=== PATIENT | male | born 1960 | race African-American/Black ===

== ENCOUNTER 2024-07-18 04:22 | Emergency (ER) | payer OTHER, SELFPAY ==
--- NOTE | ~2024-07-18 | XR_ITS ---
EXAMINATION: XR KNEE, RIGHT CLINICAL INFORMATION: R knee pain COMPARISON: None available. TECHNIQUE: AP and lateral radiographs of the knee. FINDINGS: Mild enthesopathic changes of the patella are noted. No joint effusion identified. Normal joint spacing and alignment. Mild osteophytosis of the medial tibial plateau. Mild prepatellar soft tissue prominence. XR/XR knee RT 2V IMPRESSION: *No acute fractures or subluxations. *Borderline prepatellar soft tissue prominence which may represent soft tissue inflammatory changes. *Minimal osteophytosis of the medial tibial plateau. Electronically signed by: Bipin Rodriguez MD 07/18/2024 06:07 AM HYACINTH
[2024-07-18 04:29] VITALS: BP 122/77; BP 160/92; PULSE 107; PULSE 116; RESP 20; TEMP 36.6; O2SAT 95; O2SAT 98; BMI 32.5
[2024-07-18] MEDS: Acetaminophen 325 MG TABLET 975 MG PO (04:39)
[2024-07-18 05:01] LABS: MANUAL DIFF FLAG NO
[2024-07-18 05:02] LABS: Basophils Absolute Auto 0.1 X10*3/uL (0.0-0.2); Basophils Percent Auto 0.7 % (0-2); Eosinophils Absolute Auto 0.2 X10*3/uL (0.0-0.4); Eosinophils Percent Auto 2.8 % (0-4); Hematocrit 38.3 % (42.0-52.0); Hemoglobin 12.7 g/dl (14.0-18.0); Imm Gran Abs Auto 0.04 X10*3/uL (0.00-0.03); Imm Gran Pct Auto 0.6 % (0.0-0.4); Lymphocytes Absolute Auto 1.8 X10*3/uL (1.2-4.9); Lymphocytes Percent Auto 25.5 % (20-40); Mean Corpuscular HGB Conc 33.2 g/dl (31.0-36.0); Mean Corpuscular Hemoglobin 27.8 pg (27.0-33.0); Mean Corpuscular Volume 83.8 fL (80.0-98.0); Mean Platelet Volume 11.2 fL (9.4-12.4); Monocytes Absolute Auto 0.8 X10*3/uL (0.1-1.2); Monocytes Percent Auto 10.5 % (2-11); Neutrophils Absolute Auto 4.3 x10*3/uL (2.0-8.3); Neutrophils Percent Auto 59.9 % (45-73); Platelet Count 272 X10*3/uL (160-400); Red Blood Count 4.57 X10*6/uL (4.60-5.80); White Blood Count 7.2 X10*3/uL (4.8-10.8)
[2024-07-18 05:15] LABS: Albumin Level 4.6 g/dL (3.5-5.0); Alkaline Phosphatase 121 U/L (39-117); Anion Gap 16 (12-20); Aspartate Amino Transferase 42 U/L (5-37); Bilirubin Total 0.2 mg/dL (0.0-1.0); Blood Urea Nitrogen 13 mg/dL (9-16); Calcium 10.5 mg/dL (8.4-10.2); Carbon Dioxide 22 mmol/L (22-29); Chloride 103 mmol/L (96-108); Creatinine Clr Calc Pharmacy 95.1; Estimated Glomerular Filt Rate > 60; Glucose Random 212 mg/dL (60-115); Potassium 4.2 mmol/L (3.3-5.1); Sodium 137 mmol/L (135-145); Total Protein 8.5 g/dL (6.5-8.0); Uric Acid 5.1 mg/dL (3.4-7.0)
[2024-07-18 05:25] LABS: Alanine Aminotransferase 43 U/L (0-40)
--- NOTE | 2024-07-18 05:58 | PC.NURSE ---
pt reporting 8/10 pain. states he believes it may be gout. unable to bear weight. Has to take the bus after leaving here would like crutches or cane when discharged
[2024-07-18] MEDS: oxyCODONE HCl Immed Release 5 MG TABLET 10 MG PO (06:10)
[2024-07-18] MEDS: predniSONE 20 MG TABLET 60 MG PO (06:10)
[2024-07-18 06:36] VITALS: BP 148/89; PULSE 94; RESP 17; TEMP 37.8; O2SAT 96
--- NOTE | 2024-07-18 07:31 | ED.EXTPRO ---
HPI - Extremity Problem General Chief complaint: Extremity Problem Stated complaint: RT KNEE PAIN Time Seen by Provider: 07/18/24 06:55 Source: patient Mode of arrival: ambulatory History of Present Illness ED Provider: Stacy HAYDEN Narrative: 63-year-old male with history of gout and comes in with 1 week of right knee pain that is worsening, there is warmth and he reports redness. He denies any fevers or chills. Related Data Home Medications ?Medication ?Instructions ?Recorded ?Confirmed Pepcid 10/22/23 Remeron 10/22/23 10/22/23 bupropion HCl 10/22/23 omeprazole 10/22/23 tadalafil (pulm. hypertension) 10/22/23 Allergies Allergy/AdvReac Type Severity Reaction Status Date / Time No Known Allergies Allergy Verified 07/18/24 04:35 Review of Systems Review of Systems: Pertinent positives and negatives as stated in [facility]PI [facility] Past Medical History Source: nursing notes reviewed Medical History HTN (hypertension) Spinal stenosis Depressed Anxiety PTSD (post-traumatic stress disorder) GERD (gastroesophageal reflux disease) Gout Hyperlipidemia Social History Social History Alcohol intake: current Alcohol intake frequency: a few times a week Smoked in Last 30 Days: No Use of substances other than those prescribed or required for medical reasons: No Advance Directives: No Advance Directives Information Provided: No Physical Exam Vital Signs: Vital Signs: Last Vital Signs Temp 100.0 F 07/18/24 06:36 Pulse 94 07/18/24 06:36 Resp 17 07/18/24 06:36 BP 148/89 H 07/18/24 06:36 Pulse Ox 96 07/18/24 06:36 O2 Del Method Room Air 07/18/24 06:36 BMI result Body Mass Index 32.5 VITAL SIGNS: Reviewed. GENERAL: Well developed, well nourished, in no acute distress. HEAD: Normocephalic/atraumatic EYES: PERRLA, EOMI LUNGS: Normal breath sounds. No adventitious sounds or accessory muscle use. SpO2<96> CARDIOVASCULAR: Regular rate and rhythm without noted murmurs ABDOMEN: Soft, non-tender, non-distended with bowel sounds. MUSCULOSKELETAL: No tenderness, deformities, or effusions noted on gross inspection. EXTREMITIES: No cyanosis, clubbing or edema. RIGHT KNEE: Warmth noted to the knee, no significant effusion, some erythema without induration noted and neurovascularly intact distal. SKIN: Inspection of the skin reveals no rashes NEUROLOGIC: Alert and oriented x 4. Strength and sensation to light touch were grossly intact x 4. Medications Administered Discontinued Medications Generic Name Dose Route Start Last Admin Trade Name Freq PRN Reason Stop Dose Admin Acetaminophen 975 mg 07/18/24 04:37 07/18/24 04:39 Acetaminophen 325 Mg Tablet PO 07/18/24 04:38 975 mg ONCE ONE Administration Oxycodone HCl 10 mg 07/18/24 06:03 07/18/24 06:10 Oxycodone Hcl Immed Release 5 Mg Tablet PO 07/18/24 06:04 10 mg ONCE ONE Administration Prednisone 60 mg 07/18/24 06:03 07/18/24 06:10 Prednisone 20 Mg Tablet PO 07/18/24 06:04 60 mg ONCE ONE Administration Medical Decision Making Medical Decision Making [facility] Narrative: 63-year-old male with history and clinical presentation, DD DX: Gout flare, osteoarthritis flare, no clinical suspicion for septic arthritis at this time. I reviewed and interpreted all investigations and there is no evidence of infectious leukocytosis, there is a normocytic anemia, no thrombocytopenia. There is no demonstrate CHAR/electrolyte but clinically stable liver values. X-ray on my interpretation does not demonstrate any significant effusion, there are no fractures or dislocations identified and otherwise my interpretation is in agreement with radiology's impression. My interpretation is that this is a gout flare and patient will be treated with initial 1.2 mg of colchicine and follow-up with 0.6 mg 1 hour later. He is also advised to follow-up with his primary care doctor and to return to this emergency room should he experience any worsening of his symptoms. Differential Diagnosis Differential Diagnoses: The differential diagnosis associated with the presentation includes As above Admission/Observation Consideration of admission/observation: Escalation of care including admission/observation considered Patient does not meet inpatient level of care Lab Data [facility] Lab Attestation statement: I reviewed the patient's lab results. As above 07/18/24 04:47 07/18/24 04:47 Labs: Lab Results 07/18/24 Range/Units 04:47 WBC 7.2 (4.8-10.8) X10*3/uL RBC 4.57 L (4.60-5.80) X10*6/uL Hgb 12.7 L (14.0-18.0) g/dl Hct 38.3 L (42.0-52.0) % MCV 83.8 (80.0-98.0) fL MCH 27.8 (27.0-33.0) pg MCHC 33.2 (31.0-36.0) g/dl RDW 15.0 (11.0-16.0) % Plt Count 272 (160-400) X10*3/uL MPV 11.2 (9.4-12.4) fL Immature Gran % (Auto) 0.6 H (0.0-0.4) % Neut % (Auto) 59.9 (45-73) % Lymph % (Auto) 25.5 (20-40) % Mayes % (Auto) 10.5 (2-11) % Eos % (Auto) 2.8 (0-4) % Baso % (Auto) 0.7 (0-2) % Lymph # (Auto) 1.8 (1.2-4.9) X10*3/uL Mayes # (Auto) 0.8 (0.1-1.2) X10*3/uL Eos # (Auto) 0.2 (0.0-0.4) X10*3/uL Baso # (Auto) 0.1 (0.0-0.2) X10*3/uL Abs Immat Gran (auto) 0.04 H (0.00-0.03) X10*3/uL Absolute Neuts (auto) 4.3 (2.0-8.3) x10*3/uL Absolute Nucleated RBC 0.000 (0.0-0.012) X10*3/uL Nucleated RBC % (auto) 0.0 (0.0-0.2) /100WBC Sodium 137 (135-145) mmol/L Potassium 4.2 (3.3-5.1) mmol/L Chloride 103 (96-108) mmol/L Carbon Dioxide 22 (22-29) mmol/L Anion Gap 16 (12-20) BUN 13 (9-16) mg/dL Creatinine 1.00 (0.5-1.4) mg/dL Estim Creat Clear Calc 95.1 Estimated GFR > 60 Random Glucose 212 H (60-115) mg/dL Uric Acid 5.1 (3.4-7.0) mg/dL Calcium 10.5 H (8.4-10.2) mg/dL Total Bilirubin 0.2 (0.0-1.0) mg/dL AST 42 H (5-37) U/L ALT 43 H (0-40) U/L Alkaline Phosphatase 121 H (39-117) U/L Total Protein 8.5 H (6.5-8.0) g/dL Albumin 4.6 (3.5-5.0) g/dL Independent Interpretation I performed an independent interpretation of an: Plain X-Ray Interpretation: As above Radiology Impression Discussion of test interpretation with radiology: I have reviewed the radiologist's reading. Radiologist Impression: As above External Record Review External record reviewed: Prior outpatient labs and Prior outpatient radiology Discharge Plan Discharge Clinical Impression: Gout flare Patient Disposition: Home, Self-Care Instructions: Low Purine Diet (ED), Gout (ED) Additional Instructions: Resume all home medications as prescribed. You have been treated for gout in the emergency room today, you should continue with Tylenol and ibuprofen and follow-up with your primary care doctor within the next 3-4 days. Do not hesitate to return to the emergency room for any worsening of your symptoms. Prescriptions: No Action Pepcid Remeron bupropion HCl omeprazole tadalafil (pulm. hypertension) Referrals: Jam Parrish MD [Primary Care Provider] - Print Language: Maltese
[2024-07-18] MEDS: Colchicine 0.6 MG TABLET 1.2 MG PO (08:07)
[2024-07-18] MEDS: Colchicine 0.6 MG TABLET PO (08:07)
[2024-07-18 08:10] VITALS: BP 148/89; PULSE 94; RESP 17; TEMP 37.8
[2024-07-18 08:11] VITALS: BP 148/89; PULSE 94; RESP 17; TEMP 37.8
[2024-07-18 08:43] VITALS: BP 148/89; PULSE 94; RESP 17; TEMP 37.8
== END 2024-07-18 08:44 | disposition home or self-care (01) ==
PROVIDERS: Emergency Provider Student in an Organized Health Care Education/Training Program; PCP Internal Medicine
DX: M10.9 Gout, unspecified (principal); M25.561 Pain in right knee; I10 Essential (primary) hypertension; E78.5 Hyperlipidemia, unspecified
CPT/HCPCS: 36415; 73560; 80053; 84550; 85025; 99283; 99284

== ENCOUNTER 2024-12-21 11:09 | Emergency (ER) | payer OTHER, SELFPAY ==
--- NOTE | 2024-12-21 11:18 | ED_ITS ---
HPI - General Adult General Chief complaint: General Medical Stated complaint: N/V/D,WEAK, X2D PER EMS Time Seen by Provider: 12/21/24 11:18 Source: patient, EMS, RN notes reviewed and old records reviewed Mode of arrival: EMS Limitations: no limitations History of Present Illness ED Provider: Shravan HAYDEN narrative: Patient is a 64-year-old male with history of anxiety, depression, PTSD, HTN, GERD, HLD presenting to the emergency department with complaint of generalized fatigue. States last night at bedtime he felt extremely anxious, felt he was unable to sit still, tremulous to his extremities. After that he reports ?very dark and ?diarrhea, nausea and vomiting. Denies fevers. Denies chest pain, dyspnea, palpitations. Denies abdominal pain. Reports increased urinary frequency at night but states he has been drinking an increased amount of water during the day at his PCPs recommendation. States he felt so weak today that he was using a cane for ambulation. MD complaint: n/v/d, weakness Onset (ago): hour(s) Related Data Home Medications ?Medication ?Instructions ?Recorded ?Confirmed Pepcid 10/22/23 Remeron 10/22/23 10/22/23 bupropion HCl 10/22/23 omeprazole 10/22/23 tadalafil (pulm. hypertension) 10/22/23 Allergies Allergy/AdvReac Type Severity Reaction Status Date / Time No Known Allergies Allergy Verified 12/21/24 11:20 Review of Systems 2 Review of Systems: As per HPI Yes all other systems are reviewed and are negative Constitutional: Constitutional: Reports as per HPI ON LICENSE OF [facility] Past Medical History Medical History HTN (hypertension) Spinal stenosis Depressed Anxiety PTSD (post-traumatic stress disorder) GERD (gastroesophageal reflux disease) Gout Hyperlipidemia Social History Social History Alcohol intake: current Alcohol intake frequency: a few times a week Smoked in Last 30 Days: No Use of substances other than those prescribed or required for medical reasons: No Advance Directives: No Advance Directives Information Provided: Yes Do you have a plan to hurt others: No Plan Physical Exam ED Vital Signs: Vital Signs - 24 hr 12/21/24 11:19 Temperature 98 F Pulse Rate 92 Respiratory Rate 18 Blood Pressure 130/73 Pulse Oximetry 95 Oxygen Delivery Method Room Air BMI result Body Mass Index 30.9 Vital signs have been reviewed and appear to be correct. Blood pressure normal. Heart rate normal. Respiratory rate normal. Temperature normal. Oxygen saturation normal. Const General: cooperative, healthy appearing and no acute distress Orientation/consciousness: oriented to person, oriented to place, oriented to time and patient oriented x3 Limitations: no limitations HENMT Head: Yes normocephalic and Yes atraumatic Ears: external ears normal General nose exam: Normal external nose present Face and sinus: Yes face symmetric Mouth: oropharynx normal and moist mucous membranes Throat: Yes uvula midline Eyes Pupils: Equal, round and reactive pupils present Neck Neck: Yes normal visual inspection and Yes supple Resp Effort & Inspection: normal respiratory effort and able to speak in complete sentences Auscultation: clear to auscultation bilaterally Cardio Rate: regular rate Rhythm: regular rhythm Heart sounds: S1 normal heart sound present and S2 normal heart sound present GI Palpation (GI): Soft to palpation and nontender Auscultation: normoactive bowel sounds General: Yes no CVA tenderness Back/Spine/Pelvis Back: no CVA tenderness Skin General skin exam: elasticity normal and turgor normal Neuro General: oriented to person, oriented to place, oriented to time, patient oriented x3, moves all extremities, no focal motor deficits and CN's II-XI intact bilaterally Cranial nerves: Yes Equal, round and reactive pupils present Cognition (Neuro): normal cognition Extrem General: Yes full ROM, Yes no pedal edema and Yes no calf tenderness Psych Mental Status: mental status grossly normal Affect: normal affect Thought process: Normal thought process present Medical Decision Making Medical Decision Making MDM Narrative: Patient is a 64-year-old male with history of anxiety, depression, PTSD, HTN, GERD, HLD presenting to the emergency department with complaint of generalized fatigue, N/V/D. On exam patient is awake, A+Ox3, VS WNL, afebrile, normal neurological exam without focal deficits, physical exam findings as above. Given reported symptoms and physical exam findings, initial differential includes but is not limited to gastroenteritis, electrolyte abnormality, dehydration, GI bleed, UTI. Unlikely ACS but will obtain EKG and troponin. Labs notable for no leukocytosis, anemia similar to prior value, slight anion gap, hypercalcemia, hypomagnesemia, negative troponin. EKG shows normal sinus rhythm. Viral serologies still pending. Patient stating that he ?has been here long enough? and wants to be discharged. Discussed with patient that he would be leaving against medical advice given his abnormal electrolytes and pending results. Patient is awake, alert, oriented x3 and has the capacity to make his own medical decisions. * The patient has decided to leave against medical advice because I've been here long enough . * They have normal mental status and adequate capacity to make medical decisions. * The patient refuses complete emergency department evaluation and treatment. * The risks have been explained to the patient, including cardiac arrhythmia, worsening illness, chronic pain, permanent disability and . * The benefits of ED evaluation and treatment have also been explained, including the availability and proximity of nurses, physicians, monitoring, diagnostic testing, treatment and reassessment. * The patient was able to understand and state the risks and benefits of hospital admission. This was witnessed by nurse Svetlana ROSE and me. * They had the opportunity to ask questions about their medical condition. * The patient was treated to the extent that they would allow and knows that they may return for care at any time. Differential Diagnosis Differential Diagnoses: The differential diagnosis associated with the presentation includes as per [facility] Admission/Observation Consideration of admission/observation: Escalation of care including admission/observation considered Patient would have been admitted to the hospital had their work up had any findings where hospital admission was appropriate and their clinical presentation warranted hospital admission. Lab Data [facility] Lab Attestation statement: I reviewed the patient's lab results. as per [facility] 12/21/24 12:00 12/21/24 12:00 Labs: Lab Results 12/21/24 Range/Units 12:00 WBC 6.7 (4.8-10.8) X10*3/uL RBC 4.38 L (4.60-5.80) X10*6/uL Hgb 12.7 L (14.0-18.0) g/dl Hct 37.6 L (42.0-52.0) % MCV 85.8 (80.0-98.0) fL MCH 29.0 (27.0-33.0) pg MCHC 33.8 (31.0-36.0) g/dl RDW 15.1 (11.0-16.0) % Plt Count 246 (160-400) X10*3/uL MPV 10.7 (9.4-12.4) fL Immature Gran % (Auto) 0.5 H (0.0-0.4) % Neut % (Auto) 68.7 (45-73) % Lymph % (Auto) 17.3 L (20-40) % Gilpin % (Auto) 11.9 H (2-11) % Eos % (Auto) 1.1 (0-4) % Baso % (Auto) 0.5 (0-2) % Lymph # (Auto) 1.2 (1.2-4.9) X10*3/uL [place]pin # (Auto) 0.8 (0.1-1.2) X10*3/uL Eos # (Auto) 0.1 (0.0-0.4) X10*3/uL Baso # (Auto) 0.0 (0.0-0.2) X10*3/uL Abs Immat Gran (auto) 0.03 (0.00-0.03) X10*3/uL Absolute Neuts (auto) 4.6 (2.0-8.3) x10*3/uL Absolute Nucleated RBC 0.000 (0.0-0.012) X10*3/uL Nucleated RBC % (auto) 0.0 (0.0-0.2) /100WBC Sodium 135 (135-145) mmol/L Potassium 4.5 (3.3-5.1) mmol/L Chloride 97 (96-108) mmol/L Carbon Dioxide 21 L (22-29) mmol/L Anion Gap 22 H (12-20) BUN 16 (9-16) mg/dL Creatinine 0.81 (0.5-1.4) mg/dL Estim Creat Clear Calc 113.1 Estimated GFR > 60 Random Glucose 128 H (60-115) mg/dL Calcium 12.2 H D (8.4-10.2) mg/dL Magnesium 1.5 L (1.6-2.6) mg/dL Total Bilirubin 0.5 (0.0-1.0) mg/dL AST 51 H (5-37) U/L ALT 37 (0-40) U/L Alkaline Phosphatase 112 (39-117) U/L Troponin I High Sens 3.1 (<3.5-35.0) ng/L Total Protein 7.8 (6.5-8.0) g/dL Albumin 4.4 (3.5-5.0) g/dL Independent Interpretation I performed an independent interpretation of an: EKG (Normal sinus rhythm, rate 82 beats per minute, normal NH interval and QTC) External Record Review External record reviewed: Inpatient record, Office record and Outpatient record Discharge Plan Discharge Clinical Impression: Weakness, Hypomagnesemia, Hypercalcemia Patient Disposition: Left Against Medical Advice Instructions: Hypercalcemia (ED), Hypomagnesemia (ED), Weakness (ED), Gastroenteritis (DC) Additional Instructions: You were evaluated in the emergency department today for weakness, nausea, vomiting, diarrhea. You chose to leave the department against medical advice prior to the completion of your evaluation and treatment. We recommend that you follow-up with your primary care provider as soon as possible. You can return to the emergency department at any time if you should change your mind. Prescriptions: No Action Pepcid Remeron bupropion HCl omeprazole tadalafil (pulm. hypertension) Stand Alone Forms: Against Medical Advice Print Language: Icelandic
[2024-12-21 11:19] VITALS: BP 130/73; BP 160/90; PULSE 92; PULSE 94; RESP 18; TEMP 36.6; O2SAT 95; O2SAT 96; BMI 30.9
--- NOTE | 2024-12-21 11:26 | ECG_ITS ---
Test Reason : vomiting Blood Pressure : */* mmHG Vent. Rate : 82 BPM Atrial Rate : 82 BPM P-R Int : 154 ms QRS Dur : 80 ms QT Int : 350 ms P-R-T Axes : 45 31 39 degrees QTcB Int : 408 ms Normal sinus rhythm Normal ECG No previous ECGs available Referred By: Cheri Cheney Electronically Signed By: Riccardo Cowart
--- OUTSIDE RECORDS SUMMARY | 2024-12-21 11:44 | XMS_ITS | Clinical Summary ---
Author Organization [facility] Address [address] [facility] [place] [address] Phone Care Team Providers Care Rotary Drier Name Role Phone Jam Parrish MD Primary Care Prov ider Allergies No known active allergies Medications allopurinoL (ZYLOPRIM) 300 mg tablet Take 1 tablet (300 mg total) by mouth 1 (one) time each day. Active medxqfvo-kyl-ux rrous sulfate 4.5 mg iron tablet Take by mouth. Activ e famotidine (PEPCID) 20 mg tablet Take 1 tablet (20 mg total) by mouth 1 (one) time each day. Active cholecalciferol , vitamin D3, 25 mcg (1,000 unit) tablet,chewable Chew. Acti ve rosuvastatin (CRESTOR) 40 mg tablet Take 1 tablet (40 mg total) by mouth 1 (one) time each day. Active prazosin (MINIPRESS) 2 mg capsule Take 1 capsule (2 mg total) by mouth at bedtime. Active buPROPion XL (WELLBUTRIN XL) 300 mg 24 hr tablet Take 1 tablet (300 mg total) by mouth 1 (one) time each day. Do not crush, chew, or split. Active traZODone (DESYREL) 100 mg tablet Take 2 tablets (200 mg total) by mouth at bedtime. Active aspirin 81 mg chewable tablet Chew 1 tablet (81 mg total) 1 (one) time each day. Active acetaminophen (TYLENOL) 325 mg tablet Take 1 tablet (325 mg total) by mouth every 6 (six) hours if needed for mild pain. Active lidocaine (LIDODERM) 5 % patch Apply 1 patch topically 1 (one) time each day. Remove & discard patch within 12 hours or as directed by MD. Active carvediloL (COREG) 12.5 mg tabletIndicatio ns:Primary hypertension,Sh ortness of breath Take 1 tablet (12.5 mg total) by mouth 2 (two) times a day with meals. 180 each 3 09/03/19 26 Active Active Problems Problem Noted Date Diagnosed Date Shortness of breath 09/08/2024 Assessment & Plan (09/08/2024 8:54 PM EST): Orders: carvediloL (COREG) 12.5 mg tablet; Take 1 tablet (12.5 mg total) by mouth 2 (two) times a day with meals. Acute idiopathic gout 09/08/2024 Assessment & Plan (09/08/2024 8:54 PM EST): Atrial flutter by electrocar diography (CMS/HCC V24, CMS/HCC V28) 09/07/2024 Assessment & Plan (09/08/2024 8:54 PM EST): Orders: ECG 12 lead Primary hypertension 09/07/2024 Assessment & Plan (09/08/2024 8:54 PM EST): Orders: ECG 12 lead carvediloL (COREG) 12.5 mg tablet; Take 1 tablet (12.5 mg total) by mouth 2 (two) times a day with meals. Pure hypercholesterolemia 09/07/2024 Assessment & Plan (09/08/2024 8:54 PM EST): Orders: ECG 12 lead Alcohol use disorder 09/07/2024 Assessment & Plan (09/08/2024 8:54 PM EST): Social History Tobacco Use Types Packs/Day Years Used Date Smoking Tobacco: Former Cigarettes Smokeless Tobacco: Never Tobacco Cessation:Counseling Given: Not Answered Alcohol Use Standard Drinks/Week Comments Yes 0 (1 standard drink = 0.6 oz pur e alcohol) 2 pints of liquor a week max Sex and Gender Information Value Date Recorded Sex Assigned at Not on file Legal Sex Male 6:54 PM EST Gender Identity Not on file Sexual Orientation Not on file Obstetrics History Last Filed Vital Signs Vital Sign Reading Time Taken Comments Blood Pressure 140/80 09/08/2024 1:27 PM EST Pulse 107 09/08/2024 1:27 PM EST Temperature - - Respiratory Rate - - Oxygen Saturation 97% 09/08/2024 1:27 PM EST Inhaled Oxygen Concentration - - Weight 110 kg (243 lb 1.6 oz) 09/08/2024 1:27 PM EST Height 182.9 cm (6') 09/08/2024 1:27 PM EST Body Mass Index 32.97 09/08/2024 1:27 PM EST Plan of Treatment Upcoming Encounters Date Type Department Care Team (Late st Contact Info) Description 01/15/2025 1:10 PM EDT Office Visit [facility] [address] [place] [address] Patric Culp NP [address] [place] [address] [address] [place] [address] Health Maintenance Due Date Last Done Comments Pneumococcal Vaccine: 50+ Years (1 of 1 - PCV) 2009 Zoster Vaccines (1 of 2) 2009 Hepatitis A Vaccines (2 of 2 - Risk 2-dose series) 02/05/2013 08/08/2012 Abdominal Aortic Aneurysm (AAA) Screen 02/26/2024 Colorectal Cancer Screening: Colonoscopy 02/26/2024 Depression Screening 02/26/2024 Hepatitis C Screening 02/26/2024 Social Influencers of Health Screening 02/26/2024 COVID-19 Vaccine ( season) 2024 Cholesterol Screening (Lipid Panel) 05/03/2024 05/03/2019, 03/15/2018, 03/15/2018, Additional history exists Falls Risk Assessment 2024 Hypertension/CHF/CAD Annual BMP Blood Test 09/07/2024 08/29/2018 Influenza Vaccine (Season Ended) 2025 DTaP,Tdap,and Td Vaccines (2 - Td or Tdap) 12/29/2033 12/30/2023 RSV Immunization Adult Patients (1 - 1-dose 75+ series) 2034 HIB Vaccines Aged Out No longer eligi ble based on patient's age to complete this topic HPV Vaccines Aged Out No longer eligi ble based on patient's age to complete this topic Hepatitis B Vaccines Aged Out No long er eligible based on patient's age to complete this topic IPV Vaccines Aged Out No longer eligi ble based on patient's age to complete this topic MMR Vaccines Aged Out No longer eligi ble based on patient's age to complete this topic Meningococcal ACWY Vaccine Aged Out N o longer eligible based on patient's age to complete this topic Meningococcal B Vaccine Aged Out No l onger eligible based on patient's age to complete this topic Pneumococcal Vaccine: Pediatrics (0 to 5 Years) and At-Risk Patients (6 to 64 Years) Aged Out No longer eligible based on patient's age to complete this topic RSV Immunization Patients Under 20 months Aged Out No longer eligible based on patient's age to complete this topic Varicella Vaccines Aged Out No longer eligible based on patient's age to complete this topic Insurance [facility] MEDICAID - [place] Care Teams Rotary Drier Relationship Specialty Start Date End Date Jam Parrish MD [address] [place] [address] PCP - General 08/27/23
--- OUTSIDE RECORDS SUMMARY | 2024-12-21 11:44 | XMS_ITS ---
Author Organization [facility] Address [address] [place] [address] [address] [place] [address] Care Team Providers Care Cardroom Manager Name Role Phone Shivani Perkins, Jam Primary Care Pro vider Unavailable Chuy Palomares, Rony Huang [phone] REASON FOR VISIT screening,gerd Encounters Encounter Location Date Provider Diagnosis [facility] Outpatient [address] [place] [id number] 10/23/2023 Rony Vera Jr Plan Of Treatment Next Appt Details Provider Name:Rony whelan Jr, 02/05/2025 01:15:00 PM, [address] [place] [address], [address], [place], [address], Progress Notes * SALINA WAHLDOB:1960 (64 yo M)Acc No.[id number]:10/23/2023 EGD and COL/MAC Patient:?SALINA WAHL Provider:?Rony Vera MD :1960???Age:63 Y???Sex:Male Jeromy e:10/23/2023 Address:[address] [place] [address] [address], [place], [place] Pcp:Jam stark M.D Subjective: * Chief Complaints: * ???1. Screening,gerd. * Medical History:? Objective: * Vitals:? Assessment: Plan: * Treatment: * * The named appointment provid er may or may not be the originator of this progress note, and it is not deemed complete until electronically signed by the appointment provider. Sign off status: Pending * Provider:?Rony Vera MD Date:?0 10/23/2023 Generated for Shabbir bunn/Jamil/Andreea on:?12/21/2024 11:44 AM EDT
--- OUTSIDE RECORDS SUMMARY | 2024-12-21 11:44 | XMS_ITS ---
Author Organization [facility] Address [address] [facility] [address] [place] [address] Care Team Providers Care Die Presser Name Role Phone Jam Parrish M.D Primary Care Pro vider Unavailable Chuy Palomares, Rony Huang Encounters Encounter Location Date Provider Diagnosis [facility] [address] [place] [address] 10/19/2023 Rony Vera Jr Plan Of Treatment Next Appt Details Provider Name:Rony whelan Jr, 02/05/2025 01:15:00 PM, [address] [facility] [address] [facility], [address], [place], [address], Progress Notes * SALINA WAHLDOB:1960 (63 yo M)Acc No.[id number]:10/19/2023 Patient:?SALINA WAHL :1960???Age:63 Y???Sex:Male Address:[address] [address], [place], [address] Subjective: * Chief Complaints: * ??? * Medical History:? * Surgical History:? * Hospitalization/Major Diagno stic Procedure:? * Medications:? Objective: Assessment: Plan: * Treatment: * Procedure Codes:? * true * Date:? Generated for Printi ng/Faxing/eTransmitting on:?12/21/2024 11:44 AM EDT
--- OUTSIDE RECORDS SUMMARY | 2024-12-21 11:45 | XMS_ITS | Patient Health Record ---
Author Organization [facility] Address [address] [facility] [place] [address] Care Team Providers Care Mri Manager Name Role Phone Jam Parrish M.D Primary Care Pro vider Unavailable Rony Vera Jr Unavailable Allergies No Known Allergies Reason For Referral Referring Provider First Name Jam Referring Provider Last Name Wilberto odell Referred Organization [facility] Referred Provider Rony Vera Jr Referred Address [address] [place] [address],[address],[place], [place],[address], Referred Provider Specialty Gastroentero logy Referral Priority Routine Medications Medication SIG (Take, Route, Frequency, Duration) Notes Start Date End Date Status MiraLax (colon prep) 17 GM/SCOOP mixed with Gatorade or Crystal Light Orally begin at 5:00 p.m. the day before the procedure for 1 day 09/27/2023 Active Mirtazapine 15 MG 1 tablet at bedtime Orally Once a day for 30 day(s) Active Omeprazole 20 MG 1 capsule 30 minutes before morning meal Orally Once a day for 30 day(s) Active Tadalafil 20 MG 1 tablet as needed Orally Once a day for 30 day(s) Active buPROPion HCl ER (XL) 300 MG 1 tablet in the morning Orally Once a day for 30 day(s) Active Famotidine 20 MG 1 tablet at bedtime as needed Orally Once a day for 30 day(s) Active Acetaminophen 325 MG 1 tablet as needed Orally every 4 hrs Active MiraLax (colon prep) 8.3 ounce ((238) grams mixed with Gatorade or Crystal Light orally begin at 5:00 p.m. the day before the procedure for 1 day 09/27/2023 Active Dulcolax (colon prep) 5 MG take at 3:00 p.m and 7:00p.m. Orally two tablets twice a day for one day for 1 day 09/27/2023 Active Lidocaine & Menthol 5 & 10 % as directed Externally Active Immunizations Vaccine Route Administration Date Status Comme nts Influenza Unknown 09/27/2023 Refused Social History Tobacco Use: Social History Observation Description Date Details (start date - stop date) Never Smoker NA - NA Tobacco Use/Smoking Question Answer Notes Patient is a nonsmoker Alcohol Screen Question Answer Notes Did you have a drink contain ing alcohol in the past year? Yes How often did you have a dri nk containing alcohol in the past year? 4 or more times a week (4 points) How many drinks did you have on a typical day when you were drinking in the past year? 3 or 4 drinks (1 point) How often did you have 6 or more drinks on one occasion in the past year? Never (0 point) Points 5 Interpretation Positive Problems Problem Type SNOMED Code ICD Code Onset Dates Problem Status W/U Status Risk Notes Problem 289478042 Colon cancer screening (Z12.11) Active confirmed Problem 440156730 Gastroesophageal reflux disease, unspecified whether esophagitis present (K21.9) Active confirmed Plan Of Treatment Future Test Test Name Order Date UPPER GI ENDOSCOPY 09/27/2023 COLONOSCOPY 09/27/2023 Next Appt Details Provider Name:Rony whelan , 02/05/2025 01:15:00 PM, [address] [place] [address], [facility] [address], [place], [address], Insurance Providers Payer Name Payer Address Payer Phone Subscriber Number Group Number Insured Name Patient Relationship to Insured Coverage Start Date Coverage End Date [facility] [employer] [address] [place] [id number] [phone] [id number] SALINA WAHL Self - patient is the insured Medical (General) History Medical History History ICD Code Hyperlipidemia Elevated blood sugar Gout Gastroesophageal reflux disease Anxiety/depression/PTSD Spinal stenosis Surgical History Surgery Date(Month/Year) Hospitalization History Reason Date(Month/Year) [facility], difficulty with bre n, records requested 08/29
--- OUTSIDE RECORDS SUMMARY | 2024-12-21 11:45 | XMS_ITS ---
Author Organization [facility] Address [address] [facility] [place] [address] Care Team Providers Care Logger Driving Horses Name Role Phone Jam Parrish M.D Primary Care Pro vider Unavailable Chuy Palomares, Rony Huang REASON FOR VISIT cancelled procedure Encounters Encounter Location Date Provider Diagnosis [facility] [address] [facility] [address] [place] [address] 10/22/2023 Rony Vera Jr Plan Of Treatment Next Appt Details Provider Name:Rony whelan Jr, 02/05/2025 01:15:00 PM, [address] [facility], [address], [place], [address], Progress Notes * SALINA WAHLDOB:1960 (63 yo M)Acc No.[id number]:10/22/2023 Patient:?SALINA WAHL :1960???Age:63 Y???Sex:Male Address:[address] [facility] [address] [facility] [address], [place], [address] * true * Date:? Generated for Shabbir bunn/Jamil/eTransmitting on:?12/21/2024 11:44 AM EDT
[2024-12-21 12:00] VITALS: BP 136/77; PULSE 85; RESP 18; TEMP 36.6; O2SAT 95
[2024-12-21 12:05] LABS: MANUAL DIFF FLAG NO
[2024-12-21 12:10] LABS: Basophils Percent Auto 0.5 % (0-2); Eosinophils Absolute Auto 0.1 X10*3/uL (0.0-0.4); Eosinophils Percent Auto 1.1 % (0-4); Hematocrit 37.6 % (42.0-52.0); Hemoglobin 12.7 g/dl (14.0-18.0); Imm Gran Abs Auto 0.03 X10*3/uL (0.00-0.03); Imm Gran Pct Auto 0.5 % (0.0-0.4); Lymphocytes Absolute Auto 1.2 X10*3/uL (1.2-4.9); Lymphocytes Percent Auto 17.3 % (20-40); Mean Corpuscular HGB Conc 33.8 g/dl (31.0-36.0); Mean Corpuscular Volume 85.8 fL (80.0-98.0); Mean Platelet Volume 10.7 fL (9.4-12.4); Monocytes Absolute Auto 0.8 X10*3/uL (0.1-1.2); Monocytes Percent Auto 11.9 % (2-11); Neutrophils Absolute Auto 4.6 x10*3/uL (2.0-8.3); Neutrophils Percent Auto 68.7 % (45-73); Platelet Count 246 X10*3/uL (160-400); Red Blood Count 4.38 X10*6/uL (4.60-5.80); Red Cell Distribution Width 15.1 % (11.0-16.0); White Blood Count 6.7 X10*3/uL (4.8-10.8)
[2024-12-21 12:22] LABS: Alanine Aminotransferase 37 U/L (0-40); Albumin Level 4.4 g/dL (3.5-5.0); Alkaline Phosphatase 112 U/L (39-117); Anion Gap 22 (12-20); Aspartate Amino Transferase 51 U/L (5-37); Bilirubin Total 0.5 mg/dL (0.0-1.0); Blood Urea Nitrogen 16 mg/dL (9-16); Calcium 12.2 mg/dL (8.4-10.2); Carbon Dioxide 21 mmol/L (22-29); Chloride 97 mmol/L (96-108); Creatinine Clr Calc Pharmacy 113.1; Estimated Glomerular Filt Rate > 60; Glucose Random 128 mg/dL (60-115); Magnesium 1.5 mg/dL (1.6-2.6); Potassium 4.5 mmol/L (3.3-5.1); Sodium 135 mmol/L (135-145); Total Protein 7.8 g/dL (6.5-8.0)
[2024-12-21 12:26] LABS: Troponin-I High Sensitivity 3.1 ng/L (<3.5-35.0)
[2024-12-21 12:56] LABS: Influenza A PCR NEGATIVE (Negative); Influenza B PCR NEGATIVE (Negative); Resp Syncy Virus RNA Qual PCR NEGATIVE (Negative); SARS COV2 PCR INHOUSE NEGATIVE (Negative)
--- NOTE | 2024-12-21 12:58 | PC.NURSE ---
Pt. notified primary RN of wanting to leave. Informed SEWER REPAIRER Cheri. whom spoke to pt . of leaving AMA at this time. Pt. clarified he still wants to leave after being informed. D/C and AMA form signed.
[2024-12-21 13:02] VITALS: BP 136/77; PULSE 85; RESP 18; TEMP 36.6; O2SAT 95
== END 2024-12-21 13:03 | disposition left against medical advice (07) ==
PROVIDERS: Registered Nurse Emergency; Emergency Provider Emergency Medicine
DX: R53.1 Weakness (principal); E83.42 Hypomagnesemia; E83.52 Hypercalcemia; R53.83 Other fatigue; R11.2 Nausea with vomiting, unspecified; Z53.29 Procedure and treatment not carried out because of patient's decision for other reasons; I10 Essential (primary) hypertension; E78.5 Hyperlipidemia, unspecified; Z03.818 Encounter for observation for suspected exposure to other biological agents ruled out; Z79.899 Other long term (current) drug therapy
CPT/HCPCS: 0241U; 36415; 80053; 83735; 84484; 85025; 93005; 99283; 99284

== ENCOUNTER → 2024-12-21 11:26 | Outpatient (BNV) | payer OTHER, SELFPAY | PROVIDERS: Emergency Provider Emergency Medicine; Visit Provider Internal Medicine Cardiovascular Disease | DX: R11.10 Vomiting, unspecified (principal) | CPT/HCPCS: 93010 ==

== ENCOUNTER 2024-12-21 16:08 | Emergency (ER) | payer OTHER, SELFPAY ==
--- NOTE | ~2024-12-21 | XR_ITS ---
CLINICAL HISTORY: cough 2 view chest x-ray Comparison: None Findings: The lungs are clear. Normal size heart. No acute fracture. IMPRESSION: 1. No acute findings. This document has been electronically signed by: Gustavo Damon MD on 12/21/2024 19:29:29
[2024-12-21 16:11] VITALS: BP 109/71; PULSE 109; RESP 18; TEMP 35.6; O2SAT 97; BMI 30.5
--- NOTE | 2024-12-21 16:11 | ED_ITS ---
HPI - General Adult General Chief complaint: General Medical Stated complaint: weakness hypomagnesemia was here earlier today Time Seen by Provider: 12/21/24 18:04 Source: patient Mode of arrival: ambulatory Limitations: no limitations History of Present Illness ED Provider: Ann Hassan PA-C HPI narrative: Patient is a 64 year old assigned male at with a history of HTN, GERD, PTSD, and HLD presenting to the emergency department today with restlessness, difficulty walking, and low magnesium. Patient states that he was seen here earlier today and told that he had low magnesium but waited too long and left against medical advice. Patient states that he is also coughing and would like something for that. Patient states that he told the provider earlier he was having nausea and vomiting but that has resolved. Patient denies any dizziness, lightheadedness, abdominal pain, current nausea, recent vomiting, fever, chills, blurry vision, double vision, loss of vision, chest pain, difficulty breathing, shortness of breath, back pain, night sweats, pain with urination, increased urinary frequency, increased urinary urgency, blood in his urine or stool, syncope or a near syncopal episode, recent trauma or falls, bowel incontinence, bladder incontinence, or any other complaints at this time. Relieving factors: none Exacerbating factors: none Treatments prior to arrival: none Related Data Home Medications ?Medication ?Instructions ?Recorded ?Confirmed Pepcid 10/22/23 Remeron 10/22/23 10/22/23 bupropion HCl 10/22/23 omeprazole 10/22/23 tadalafil (pulm. hypertension) 10/22/23 Previous Rx's ?Medication ?Instructions ?Recorded benzonatate 200 mg capsule 200 mg PO TID PRN cough #20 caps 12/21/24 magnesium 200 mg tablet 200 mg PO DAILY #5 tabs 12/21/24 ondansetron 4 mg disintegrating 4 mg PO Q8H PRN nausea and 12/21/24 tablet vomiting #20 tabs Allergies Allergy/AdvReac Type Severity Reaction Status Date / Time No Known Allergies Allergy Verified 12/21/24 16:15 Review of Systems 2 Constitutional: Constitutional: Reports no additional constitutional complaints, Denies chills, Denies fever(s) and Denies night sweats Eyes: Eyes: Reports no additional eye complaints, Denies blurry vision, Denies change in vision, Denies diplopia, Denies eye discharge, Denies loss of vision and Denies eye pain ENT: Denies dizziness Cardiovascular: Cardiovascular: Reports no additional cardiovascular complaints, Denies chest pain, Denies lightheadedness, Denies Loss of Consciousness and Denies dyspnea Respiratory: Respiratory: Reports no additional respiratory complaints, Reports cough and Denies dyspnea Gastrointestinal: Gastrointestinal: Reports no additional gastrointestinal complaints, Denies abdominal pain, Denies melena, Denies hematochezia, Denies change in bowel habits, Denies change in stool character, Denies nausea and Denies vomiting Genitourinary: Genitourinary: Reports no additional male genitourinary complaints, Denies hematuria, Denies oliguria, Denies difficulty urinating, Denies dysuria, Denies urinary frequency, Denies urinary hesitancy, Denies urinary incontinence and Denies urinary urgency Musculoskeletal: Musculoskeletal: Reports no additional musculoskeletal complaints, Denies numbness and Denies tingling Neurologic: Denies dizziness, Denies loss of vision, Denies numbness and Denies tingling Comments: feeling restless Psychiatric: Psychiatric: Reports no additional psychiatric complaints Endocrine: Endocrine: Reports no additional endocrine complaints Hematologic/Lymphatic: Hematologic/Lymphatic: Reports no additional hematologic/lymphatic complaints Allergic/Immunologic: Allergic/Immunologic: Reports no additional allergic/immunologic complaints PMFSH Past Medical History Attestation statement: The following information was validated with the patient. Source: old records reviewed and nursing notes reviewed Medical History HTN (hypertension) Spinal stenosis Depressed Anxiety PTSD (post-traumatic stress disorder) GERD (gastroesophageal reflux disease) Gout Hyperlipidemia Social History Social History Alcohol intake: current Alcohol intake frequency: a few times a week Advance Directives: No Advance Directives Information Provided: Yes Physical Exam ED Vital Signs: Vital Signs - 24 hr 12/21/24 16:11 Temperature 96.0 F L Pulse Rate 109 H Respiratory Rate 18 Blood Pressure 109/71 Pulse Oximetry 97 Oxygen Delivery Method Room Air BMI result Body Mass Index 30.5 Const General: cooperative, no acute distress, alert and awake Nutritional Appearance: well nourished and obese Orientation/consciousness: patient oriented x3 HENMT Head: Yes normal to inspection and Yes atraumatic Ears: hearing grossly normal bilaterally and external ears normal General nose exam: Normal external nose present, no nasal discharge noted and no epistaxis Face and sinus: Yes normal facial exam, No abrasion and No laceration Mouth: Normal oral and palatal mucosa present, no drooling and no muffled voice Eyes General: appearance normal, both eyes and all related structures Periorbital: periorbital findings normal Eyelids: Yes eyelids normal Conjunctivae: conjunctivae normal Pupils: Equal, round and reactive pupils present EOM: EOMs intact bilaterally Neck Neck: Yes normal visual inspection, Yes full ROM and Yes no lymphadenopathy Resp Effort & Inspection: normal respiratory effort and able to speak in complete sentences Neuro General: patient oriented x3, moves all extremities and CN's II-XI intact bilaterally Cranial nerves: Yes Equal, round and reactive pupils present Cognition (Neuro): normal cognition Extrem General: Yes normal to inspection, Yes full ROM and Yes capillary refill normal Psych Appearance: grossly normal Mental Status: mental status grossly normal Affect: normal affect Attitude: cooperative Thought process: Normal thought process present Thought content: Normal thought content present Insight: Good insight present (Psych) Course Course Course Narrative: 12/21/24 1612 NADIA Medrano This is a Rapid Medical Examination (RME) performed by Janett Ramos PA-C in triage. Full HPI, ROS, assessment and treatment plan per primary provider in the Main ED. Hx: 64 yo M who left our facility AMA approx 3 hours [employer] to this evaluation returns to the ED feeling restless, diaphoretic. was noted to be hypercalcemic, hypomagnesemic. he now wants something to calm him down . PE/vitals: ambulating w/ slow gait. Plan: repeat labs Reevaluation(s) Reevaluation #1: Patient received in sign-out at change of shift pending re-evaluation. The patient reports that he feels much better, he still somewhat restless but he is able to ambulate without difficulty. He is requesting discharge. He does feel that the benzonatate did help his cough, I will send a prescription to his pharmacy. Time: 21:33 Medications Administered Discontinued Medications Generic Name Dose Route Start Last Admin Trade Name Freq PRN Reason Stop Dose Admin Benzonatate 100 mg 12/21/24 19:04 12/21/24 19:59 Benzonatate 100 Mg Capsule PO 12/21/24 19:05 100 mg ONCE ONE Administration Magnesium Sulfate 2 gm in 50 mls @ 25 mls/hr 12/21/24 18:04 12/21/24 18:50 Magnesium Sulfate/H2o IV 12/21/24 20:03 25 mls/hr ONCE ONE Administration Sodium Chloride 1,000 mls @ 999 mls/hr 12/21/24 19:30 12/21/24 20:00 Ns IV 12/21/24 20:30 999 mls/hr .Q1H1M DONOVAN Administration Medical Decision Making Medical Decision Making [facility] Narrative: Patient is a 64 year old assigned male at with a history of HTN, GERD, PTSD, and HLD presenting to the emergency department today with restlessness, difficulty walking, and low magnesium. Patient's physical exam was unremarkable. Patient's blood work showed a magnesium of 1.4 and a calcium of 12.2. Patient's EKG was unremarkable. Patient's chest x-ray showed no acute process. I explained my physical exam findings as well as all test results to the patient. I answered all questions asked by the patient. Patient currently receiving IV fluids and IV magnesium. Patient signed out to Bryan Grace PA-C pending finishing mag + fluids and ambulation trial. Differential Diagnosis Differential Diagnoses: The differential diagnosis associated with the presentation includes Hypomagnesemia Weakness Hypercalcemia Admission/Observation Consideration of admission/observation: Escalation of care including admission/observation considered Patient's disposition will be determined after magnesium finishes, fluids finish, and he is re-evaluated. Lab Data [facility] Lab Attestation statement: I reviewed the patient's lab results. My interpretation of these results are in the [facility] Rationale portion of this note. 12/21/24 16:28 12/21/24 16:28 Labs: Lab Results 12/21/24 Range/Units 16:28 WBC 6.9 (4.8-10.8) X10*3/uL RBC 4.54 L (4.60-5.80) X10*6/uL Hgb 12.9 L (14.0-18.0) g/dl Hct 38.8 L (42.0-52.0) % MCV 85.5 (80.0-98.0) fL MCH 28.4 (27.0-33.0) pg MCHC 33.2 (31.0-36.0) g/dl RDW 15.1 (11.0-16.0) % Plt Count 272 (160-400) X10*3/uL MPV 10.7 (9.4-12.4) fL Immature Gran % (Auto) 0.1 (0.0-0.4) % Neut % (Auto) 69.6 (45-73) % Lymph % (Auto) 19.4 L (20-40) % Jasper % (Auto) 9.4 (2-11) % Eos % (Auto) 0.9 (0-4) % Baso % (Auto) 0.6 (0-2) % Lymph # (Auto) 1.3 (1.2-4.9) X10*3/uL Jasper # (Auto) 0.7 (0.1-1.2) X10*3/uL Eos # (Auto) 0.1 (0.0-0.4) X10*3/uL Baso # (Auto) 0.0 (0.0-0.2) X10*3/uL Abs Immat Gran (auto) 0.01 (0.00-0.03) X10*3/uL Absolute Neuts (auto) 4.8 (2.0-8.3) x10*3/uL Absolute Nucleated RBC 0.000 (0.0-0.012) X10*3/uL Nucleated RBC % (auto) 0.0 (0.0-0.2) /100WBC Sodium 135 (135-145) mmol/L Potassium 4.3 (3.3-5.1) mmol/L Chloride 95 L (96-108) mmol/L Carbon Dioxide 21 L (22-29) mmol/L Anion Gap 23 H (12-20) BUN 17 H (9-16) mg/dL Creatinine 1.18 (0.5-1.4) mg/dL Estim Creat Clear Calc 77.0 Estimated GFR > 60 Random Glucose 174 H (60-115) mg/dL Calcium 12.2 H (8.4-10.2) mg/dL Magnesium 1.4 L* (1.6-2.6) mg/dL Total Bilirubin 0.4 (0.0-1.0) mg/dL AST 54 H (5-37) U/L ALT 41 H (0-40) U/L Alkaline Phosphatase 115 (39-117) U/L Total Protein 8.2 H (6.5-8.0) g/dL Albumin 4.7 (3.5-5.0) g/dL TSH 1.45 (0.32-4.0) uIU/mL Independent Interpretation I performed an independent interpretation of an: EKG and Plain X-Ray Interpretation: My interpretation is in agreement with the radiologist's impression of this imaging study. L CLINICAL HISTORY: cough 2 view chest x-ray Comparison: None Findings: The lungs are clear. Normal size heart. No acute fracture. IMPRESSION: 1. No acute findings. This document has been electronically signed by: Gustavo Damon MD on 12/21/2024 19:29:29 Dictated By: Gustavo Damon MD Signed By: Electronically signed by Gustavo Damon MD 12/21/24 1930 I independently interpreted this EKG and am in agreement with the below findings: Vent. Rate: 82 BPM Atrial Rate: 82 BPM P-R Int: 154 ms QRS Dur: 80 ms QT Int: 350 ms P-R-T Axes: 45 31 39 degrees QTcB Int: 408 ms Normal sinus rhythm Normal ECG No previous ECGs available DD/ 1142 Radiology Impression Discussion of test interpretation with radiology: I have reviewed the radiologist's reading. Discharge Plan Discharge Clinical Impression: Hypomagnesemia, Hypercalcemia Patient Disposition: Home, Self-Care Instructions: Hypomagnesemia (ED), Hypercalcemia (ED) Additional Instructions: Your calcium was high today in your magnesium was low. These abnormalities can explain your symptoms are likely due to your vomiting. You may use Zofran as needed for nausea and vomiting. Use benzonatate as needed for coughing. You may take magnesium supplements as prescribed I recommend that you have repeat labs to check your magnesium and calcium next week with [facility] for new or worsening symptom Prescriptions: New benzonatate 200 mg capsule 200 mg PO TID PRN (Reason: cough) Qty: 20 0RF ondansetron 4 mg tablet,disintegrating 4 mg PO Q8H PRN (Reason: nausea and vomiting) Qty: 20 0RF magnesium 200 mg tablet 200 mg PO DAILY Qty: 5 0RF No Action Pepcid Remeron bupropion HCl omeprazole tadalafil (pulm. hypertension) Print Language: Namibian
[2024-12-21 16:44] LABS: MANUAL DIFF FLAG NO
[2024-12-21 16:46] LABS: Basophils Percent Auto 0.6 % (0-2); Eosinophils Absolute Auto 0.1 X10*3/uL (0.0-0.4); Eosinophils Percent Auto 0.9 % (0-4); Hematocrit 38.8 % (42.0-52.0); Hemoglobin 12.9 g/dl (14.0-18.0); Imm Gran Abs Auto 0.01 X10*3/uL (0.00-0.03); Imm Gran Pct Auto 0.1 % (0.0-0.4); Lymphocytes Absolute Auto 1.3 X10*3/uL (1.2-4.9); Lymphocytes Percent Auto 19.4 % (20-40); Mean Corpuscular HGB Conc 33.2 g/dl (31.0-36.0); Mean Corpuscular Hemoglobin 28.4 pg (27.0-33.0); Mean Corpuscular Volume 85.5 fL (80.0-98.0); Mean Platelet Volume 10.7 fL (9.4-12.4); Monocytes Absolute Auto 0.7 X10*3/uL (0.1-1.2); Monocytes Percent Auto 9.4 % (2-11); Neutrophils Absolute Auto 4.8 x10*3/uL (2.0-8.3); Neutrophils Percent Auto 69.6 % (45-73); Platelet Count 272 X10*3/uL (160-400); Red Blood Count 4.54 X10*6/uL (4.60-5.80); Red Cell Distribution Width 15.1 % (11.0-16.0); White Blood Count 6.9 X10*3/uL (4.8-10.8)
[2024-12-21 17:36] LABS: Alanine Aminotransferase 41 U/L (0-40); Albumin Level 4.7 g/dL (3.5-5.0); Anion Gap 23 (12-20); Aspartate Amino Transferase 54 U/L (5-37); Bilirubin Total 0.4 mg/dL (0.0-1.0); Blood Urea Nitrogen 17 mg/dL (9-16); Calcium 12.2 mg/dL (8.4-10.2); Carbon Dioxide 21 mmol/L (22-29); Chloride 95 mmol/L (96-108); Estimated Glomerular Filt Rate > 60; Glucose Random 174 mg/dL (60-115); Magnesium 1.4 mg/dL (1.6-2.6); Potassium 4.3 mmol/L (3.3-5.1); Sodium 135 mmol/L (135-145); Total Protein 8.2 g/dL (6.5-8.0)
[2024-12-21 18:05] LABS: Alkaline Phosphatase 115 U/L (39-117)
[2024-12-21] MEDS: Magnesium Sulfate/H2O 2 GM/50 ML PIGGYBACK IV (18:50)
[2024-12-21] MEDS: Benzonatate 100 MG CAPSULE PO (19:59)
[2024-12-21] MEDS: 0.9 % Sodium Chloride 1,000 ML 999 ML IV (20:00)
[2024-12-21 20:14] LABS: TSH reflex Free T4 1.45 uIU/mL (0.32-4.0)
[2024-12-21 21:41] VITALS: BP 139/85; PULSE 111; RESP 20; TEMP 36.9; O2SAT 97
[2024-12-21 21:50] VITALS: BP 139/85; PULSE 111; RESP 20; TEMP 36.9; O2SAT 97
== END 2024-12-21 21:50 | disposition home or self-care (01) ==
PROVIDERS: Physician Assistant Medical; Emergency Provider Emergency Medicine Emergency Medical Services; PCP Internal Medicine
DX: E83.42 Hypomagnesemia (principal); E83.52 Hypercalcemia; I10 Essential (primary) hypertension; E78.5 Hyperlipidemia, unspecified; R26.2 Difficulty in walking, not elsewhere classified; Z79.899 Other long term (current) drug therapy
CPT/HCPCS: 36415; 71046; 80053; 83735; 84443; 85025; 96365; 96366; 99284; J3475

== ENCOUNTER → 2024-12-21 19:04 | Outpatient (BNV) | payer OTHER, MEDICARE, SELFPAY | PROVIDERS: PCP Internal Medicine; Visit Provider Radiology Diagnostic Radiology | DX: R05.9 Cough, unspecified (principal) | CPT/HCPCS: 71046 ==

== ENCOUNTER 2025-04-03 08:39 | Day surgery (SDC) | payer OTHER, SELFPAY ==
--- OUTSIDE RECORDS SUMMARY | 2023-10-23 08:40 | XMS_ITS ---
Author Organization [facility] Address [address] [place] [id number] Care Team Providers Care Leather Crafter Name Role Phone Shivani Perkins, Jam Primary Care Pro vider Unavailable Chuy Palomares, Rony Huang REASON FOR VISIT screening,gerd Encounters Encounter Location Date Provider Diagnosis [facility] Outpatient [address] [place] [id number] 10/23/2023 Rony Vera Jr Plan Of Treatment No Information Progress Notes * SALINA WAHLDOB:1960 (64 yo M)Acc No.[id number]:10/23/2023 EGD and COL/MAC Patient: SALINA HERNÁNDEZ Provider: Minor Vera MD :1960 A ge:63 Y S ex:Male Date:10/23/2023 Address:[address] [place], [place] [id number] Pcp:Jam stark M.D Subjective: * Chief Complaints: * 1 . Screening,gerd. * Medical History: Objective: * Vitals: Assessment: Plan: * Treatment: * * The named appointment provid er may or may not be the originator of this progress note, and it is not deemed complete until electronically signed by the appointment provider. Sign off status: Pending * Provider: Minor Vera MD Date: 10/23/2023 Generated for Printi ng/Faoliveg/eTransmitting on: 0 02/05/2025 02:09 PM EDT
--- OUTSIDE RECORDS SUMMARY | 2025-02-05 14:09 | XMS_ITS | Clinical Summary ---
Author Organization [facility] [employer] Address [address] [facility] [place] [address] Phone Care Team Providers Care Actor Understudy Name Role Phone Jam Parrish MD Primary Care Prov ider Allergies No known active allergies Medications allopurinoL (ZYLOPRIM) 300 mg tablet Take 1 tablet (300 mg total) by mouth 1 (one) time each day. Active jknbvhnc-jeu-fr rrous sulfate 4.5 mg iron tablet Take [...] Assessment & Plan (09/08/2024 8:54 PM EST): Hypercholesterolemia 11/11/2013 Encounters Date Type Department Care Team Description 01/14/2025 Telephone [facility] [address] [place] [address] [address] [place] [address] Patric Culp NP Reschedule from Last 3 Months Social History Tobacco Use Types Packs/Day Years [...] Care Team (Late st Contact Info) Description 07/24/2025 3:10 PM EST Office Visit [facility] [address] [place] [address] Patric Culp NP [address] [place] [address] [address] [place] [address] Health Maintenance Due Date Last Done Comments [...] patient's age to complete this topic Insurance [facility] MEDICAID - [place] Care Teams Actor Understudy Relationship Specialty Start Date End Date Jam Parrish MD [address] [place] [address] PCP - General 08/27/23
[2025-02-16 09:51] VITALS: BMI 30.2
--- NOTE | 2025-02-17 09:56 | HO.ANESPROP2 ---
Documented by User: Olena Alvarenga NP 03/04/25 11:13 HPI - Anesthesia Eval Consult details Narrative: 64yo M for Upper Endoscopy and Colonoscopy, 04/03/25 [facility] ED 12/2024 with symptomatic hypomagnesia and hypercalcemia. Likely d/t recent vomiting. Rx'd supplement. Repeat DOS. [facility] Past Medical History Medical History (Updated 02/16/25 @ 09:53 by Jessica Mcmanus RN) Neuropathy AMANUEL (obstructive sleep apnea) Diabetes Depression HTN (hypertension) Spinal stenosis Anxiety PTSD (post-traumatic stress disorder) GERD (gastroesophageal reflux disease) Gout Hyperlipidemia Surgical History Surgical History (Updated 02/16/25 @ 09:53 by Jessica Mcmanus RN) H/O colonoscopy Social History Social History (Updated 02/16/25 @ 09:53 by Jessica Mcmanus RN) Alcohol intake: current Alcohol intake frequency: a few times a week Patient Tobacco Use Status: Never used Tobacco Have you been hit, kicked, punched, or otherwise hurt by someone within the past year? If so, by whom?: No Are you DNR?: No Advance Directives: No Advance Directives Information Provided: Yes Meds Allergies Allergy/AdvReac Type Severity Reaction Status Date / Time No Known Allergies Allergy Verified 12/21/24 16:15 Home Medications ?Medication ?Instructions ?Recorded ?Confirmed ?Last Taken ?Type acetaminophen 325 mg tablet 650 mg PO Q6H PRN Pain 02/16/25 02/16/25 Unknown History bupropion HCl 300 mg 24 hr tablet, 300 mg PO QAM 02/16/25 02/16/25 Unknown History extended release famotidine 20 mg tablet 20 mg PO BEDTIME 02/16/25 02/16/25 Unknown History metformin 500 mg tablet mg 02/16/25 02/16/25 Unknown History mirtazapine 15 mg tablet 15 mg PO BEDTIME 02/16/25 02/16/25 Unknown History omeprazole 20 mg capsule,delayed 20 mg PO DAILY 02/16/25 02/16/25 Unknown History release tadalafil 20 mg tablet 20 mg PO DAILY 02/16/25 02/16/25 Unknown History Exam Height,Weight and Vital Signs: Height 6 ft Weight 101.151 kg Assessment and Plan Assessment Anesthesia Assessment: Chart Reviewed Documented by User: Miguel Maciel MD 04/03/25 09:54 [facility] Past Medical History Medical History (Updated 02/16/25 @ 09:53 by Jessica Mcmanus RN) Neuropathy AMANUEL (obstructive sleep apnea) Diabetes Depression HTN (hypertension) Spinal stenosis Anxiety PTSD (post-traumatic stress disorder) GERD (gastroesophageal reflux disease) Gout Hyperlipidemia Cognitive capacity: normal Functional capacity: independent ambulation Family History Family history of problems with anesthesia: No Surgical History Surgical History (Updated 02/16/25 @ 09:53 by Jessica Mcmanus RN) H/O colonoscopy History of Problems with Anesthesia: No Social History Social History (Updated 02/16/25 @ 09:53 by Jessica Mcmanus RN) Alcohol intake: current Alcohol intake frequency: a few times a week Patient Tobacco Use Status: Never used Tobacco Have you been hit, kicked, punched, or otherwise hurt by someone within the past year? If so, by whom?: No Are you DNR?: No Advance Directives: No Advance Directives Information Provided: Yes Meds Allergies Allergy/AdvReac Type Severity Reaction Status Date / Time No Known Allergies Allergy Verified 12/21/24 16:15 Home Medications ?Medication ?Instructions ?Recorded ?Confirmed ?Last Taken ?Type acetaminophen 325 mg tablet 650 mg PO Q6H PRN Pain 02/16/25 02/16/25 Unknown History bupropion HCl 300 mg 24 hr tablet, 300 mg PO QAM 02/16/25 02/16/25 Unknown History extended release famotidine 20 mg tablet 20 mg PO BEDTIME 02/16/25 02/16/25 Unknown History metformin 500 mg tablet mg 02/16/25 02/16/25 Unknown History mirtazapine 15 mg tablet 15 mg PO BEDTIME 02/16/25 02/16/25 Unknown History omeprazole 20 mg capsule,delayed 20 mg PO DAILY 02/16/25 02/16/25 Unknown History release tadalafil 20 mg tablet 20 mg PO DAILY 02/16/25 02/16/25 Unknown History Exam Exam Date and Time: 04/03/25 Airway Partial: Upper Heart: rrr Lungs: cts Other: normal Assessment and Plan Assessment Anesthesia Assessment: Anesthesia Plan Discussed Final Anesthetic Review Family History of Problems with Anesthesia: No History of Problems with Anesthesia: No ASA Class: II Final Preanesthetic Review: No Changes in Pt Med Stat, Meds/Allgs Chart Reviewed, Consent Obtained/Reviewed and Anes Risks/Benef Reviewed Patient Risk: Low Procedure Risk: Low Anesthetic Plan Anesthetic Plan: MAC: and Spinal Disposition: Standard PACU
--- NOTE | 2025-04-03 08:45 | MHC.SHP ---
Pre-Procedural Eval Section A - 24 Hr Update-Section A only Date of Service: 04/03/25 Section B - Complete if H&P > 30 days Chief Complaint: gerd,screening Details of Present Illness: see H&P no changes Relevant Family History (Specify if Yes): No Relevant Social History: None Present Medications: see Short Stay Collaborative assessment Medical History: No relevant PMH History of Previous Operations: No relevant previous surgery Allergies: Allergies Allergy/AdvReac Type Severity Reaction Status Date / Time No Known Allergies Allergy Verified 12/21/24 16:15 Review of Systems Sugical H&P ROS: Negative: Constitution, Cardiovascular, Respiratory, Neurological, Psychiatric, Hem-Onc, Allergic/Immunologic, Gastrointestinal, Genitourinary, Musculoskeletal, Integumentary, Endocrine and Eyes/Ears/Nose/Throat Exam Surgical H&P Exam: Normal: HEENT, Normal: Heart, Normal: Lungs, Normal: Extremities, Normal: Abdomen, Normal: Skin and Normal: Neurological Plan Diagnosis/Plan: Unchanged I have reviewed the history and physical and performed a pertinent physical examination on my patient. No changes have occurred unless specified. Time Spent With Patient Time: Total time managing care of this patient today ____ minutes.
[2025-04-03 09:02] VITALS: BP 114/76; PULSE 108; RESP 19; TEMP 36.1; O2SAT 97; BMI 29.9
[2025-04-03] MEDS: Lactated Ringers 1,000 ML 100 ML IVCONT (09:24)
[2025-04-03 09:44] LABS: Anion Gap 16 (12-20); Blood Urea Nitrogen 13 mg/dL (9-16); Calcium 12.0 mg/dL (8.4-10.2); Carbon Dioxide 26 mmol/L (22-29); Chloride 103 mmol/L (96-108); Creatinine Clr Calc Pharmacy 50.3; Estimated Glomerular Filt Rate 38; Magnesium 2.1 mg/dL (1.6-2.6); Potassium 5.1 mmol/L (3.3-5.1); Sodium 140 mmol/L (135-145)
[2025-04-03 10:47] VITALS: BP 99/61; PULSE 79; RESP 12; TEMP 36.1; O2SAT 100
[2025-04-03 11:02] VITALS: BP 134/81; PULSE 96; RESP 20; TEMP 36.1; O2SAT 98
--- NOTE | 2025-04-03 11:28 | OP_ITS ---
DATE OF SERVICE: 04/03/2025 SURGEON: Rony Vera MD INDICATIONS: Gastroesophageal reflux disease and colon cancer screening. PREOPERATIVE DIAGNOSIS: POSTOPERATIVE DIAGNOSIS: PROCEDURE PERFORMED: Upper endoscopy with biopsy, colonoscopy to the cecum with snare polypectomy. ESTIMATED BLOOD LOSS: COMPLICATIONS: ANESTHESIA: ASSISTANTS: SPECIMENS: MEDICATIONS: Monitored anesthesia care. DESCRIPTION OF PROCEDURE: A history and physical was performed. The risks and benefits of the procedure were explained to the patient. Informed consent was obtained. The patient was placed in the left lateral decubitus position. The Olympus video gastroscope was introduced into the esophagus, stomach, and duodenum. Examination was performed. The scope was removed. He was repositioned for colonoscopy. A digital rectal exam was performed and was found to be normal. The Olympus pediatric video colonoscope was introduced into the rectum and advanced to the cecum. The cecum was identified by transillumination, palpation, and identification of ileocecal valve. Examination was performed. The scope was removed. He tolerated the procedure well and was taken to recovery area in stable condition. FINDINGS: Upper endoscopy: 1. Esophagus: The esophagus showed distal erosions. Biopsies were obtained from the EG junction. 2. Stomach: The stomach showed antral gastritis with erosions. Biopsies were obtained from the antrum. 3. Duodenum: The bulb and second portion were normal. Colonoscopy: 1. The terminal ileum was briefly glimpsed, but the ileum itself could not be intubated. This appeared normal. The visualized colonic mucosa was normal without evidence of masses or ulcers. At 25 cm from the anal verge, was an 8 mm polyp on a stalk, which was removed with a snare and recovered via suction. No other polyps were identified. Retroflexed examination showed small internal hemorrhoids. IMPRESSION: 1. Erosive gastritis and esophagitis. 2. Colon polyp. RECOMMENDATION: 1. Follow up the biopsy results. 2. Increase omeprazole to 40 mg daily. MD NOEMI Florez/EMILYL / [id number]
== END 2025-04-03 14:07 | disposition home or self-care (01) ==
PROVIDERS: Nurse Practitioner; PCP Internal Medicine; Visit Provider Internal Medicine Gastroenterology
PROC: (CPT 45385; principal; 2025-04-03 09:10)
DX: Z12.11 Encounter for screening for malignant neoplasm of colon (principal); D12.5 Benign neoplasm of sigmoid colon; K64.8 Other hemorrhoids; K21.9 Gastro-esophageal reflux disease without esophagitis; K20.80 Other esophagitis without bleeding; K29.60 Other gastritis without bleeding; E11.9 Type 2 diabetes mellitus without complications; I10 Essential (primary) hypertension; E78.5 Hyperlipidemia, unspecified; G47.33 Obstructive sleep apnea (adult) (pediatric); Z99.89 Dependence on other enabling machines and devices; Z79.84 Long term (current) use of oral hypoglycemic drugs; Z79.899 Other long term (current) drug therapy
CPT/HCPCS: 45385; 43239; 36415; 80048; 83735; 88305; 88313; 88342; J2003; J2371; J2704; J3010

== ENCOUNTER 2025-06-21 12:03 | Emergency (ER) | payer OTHER, SELFPAY ==
--- OUTSIDE RECORDS SUMMARY | 2025-04-03 02:30 | XMS_ITS ---
Author Organization [facility] Address [address] [place] [address] [place] [phone] Care Team Providers Care Supervisor Remelt Name Role Phone Jam Parrish M.D Primary Care Pro vider Unavailable Chuy Palomares, Rony Huang REASON FOR VISIT colon screening,gerd Encounters Encounter Location Date Provider Diagnosis [facility] Out[facility] [address] [place] [phone] 04/03/2025 Rony Vera Jr Plan Of Treatment Next Appt Details Provider Name:Rony whelan Jr, 07/20/2025 01:55:00 PM, [address] [place] [address], Suite [facility], [place], [address], Progress Notes * DARRENMARLASALINADOB:1960 (64 yo M)Acc No.[id number]:04/03/2025 EGD and COL/MAC Patient: SALINA HERNÁNDEZ Provider: Minor Vera MD :1960 A ge:64 Y S ex:Male Date:04/03/2025 Address:[address] [place] [address], [id number] Pcp:Jam stark M.D Subjective: * Chief Complaints: * C olon screening,gerd * The named appointment provid er may or may not be the originator of this progress note, and it is not deemed complete until electronically signed by the appointment provider. Sign off status: Pending * Provider: Minor Vera MD Date: 0 04/03/2025 Generated for Shabbir bunn/Jamil/Andreea on: 1 08/21/2024 02:45 PM EST
--- NOTE | ~2025-06-21 | CT_ITS ---
CLINICAL HISTORY: ETOH., fall CT head without contrast Comparison: None Findings: No intracranial mass, midline shift, hydrocephalus, or acute hemorrhage. No CT evidence of acute ischemia. Visualized paranasal sinuses and mastoid air cells normal. Orbits unremarkable. No skull fracture Impression: 1. No acute intracranial abnormalities. This document has been electronically signed by: Ajith Roque MD on 06/21/2025 14:18:18
--- NOTE | ~2025-06-21 | CT_ITS ---
CLINICAL HISTORY: ETOH, fall CT cervical spine without contrast Comparison: None Findings: Normal limited view of the intracranial contents. Soft tissues of the neck are normal. Lung apices are normal. Normal vertebral body alignment. No fractures or dislocations. Diffuse cervical degenerative changes are present, more significant C4-C7.. Impression: 1. No cervical vertebral fracture or traumatic malalignment. This document has been electronically signed by: Ajith Roque MD on 06/21/2025 13:52:26
--- NOTE | ~2025-06-21 | CT_ITS ---
CLINICAL HISTORY: ETOH, fall, epistaxis CT maxillofacial without contrast Comparison: None Findings: Mild deformity of the left nasal bone (19; 173 and 23; 32-36) is compatible with minimal age-indeterminate fracture. No other maxillofacial fractures. Paranasal sinuses and mastoid air cells clear. Orbits normal. Temporomandibular joints intact. Visualized intracranial contents are normal. Soft tissues unremarkable Impression: 1. Very slightly depressed age-indeterminate left nasal bone fracture. 2. No other maxillofacial fractures. This document has been electronically signed by: Ajith Roque MD on 06/21/2025 14:20:12
[2025-06-21 12:13] VITALS: BP 162/90; PULSE 86; O2SAT 97
--- NOTE | 2025-06-21 12:20 | ECG_ITS ---
Test Reason : FALL Blood Pressure : */* mmHG Vent. Rate : 78 BPM Atrial Rate : 78 BPM P-R Int : 180 ms QRS Dur : 84 ms QT Int : 380 ms P-R-T Axes : 50 37 -3 degrees QTcB Int : 433 ms Normal sinus rhythm Normal ECG When compared with ECG of 21-Dec-2024 11:42, No significant changes seen Referred By: Cheri Cheney Electronically Signed By: MARIA DEL CARMEN CARR
--- NOTE | 2025-06-21 12:24 | ED.GENADULT ---
HPI - General Adult General Chief complaint: Fall Stated complaint: ETOH,UNWIT FALL,DENIES HS,LOC/UNK,UNK THINNER Time Seen by Provider: 06/21/25 12:20 Source: patient, EMS, RN notes reviewed and old records reviewed Mode of arrival: EMS History of Present Illness ED Provider: Shravan HPI narrative: Patient is a 64-year-old male with history of alcohol use disorder presenting to the emergency department after an unwitnessed fall at home. Patient reports he was in the kitchen and had made himself an alcoholic drink and some food to eat when he lost his balance and fell to the floor. He denies loss of consciousness with the fall was unwitnessed. He states that he was unable to get off the floor on his own so he called out to his roommate who assisted him to bed and then called 911. He denies headache, vision changes, chest pain, neck or back pain. He admits to daily alcohol use but denies history of alcohol withdrawal seizures. States the drank he was making at the time of the fall was not his 1st drink this morning. He states that he is not interested in assistance with detox and attends weekly recovery meetings. Also admits to cocaine use. MD complaint: fall Related Data Home Medications ?Medication ?Instructions ?Recorded ?Confirmed acetaminophen 325 mg tablet 650 mg PO Q6H PRN Pain 02/16/25 02/16/25 bupropion HCl 300 mg 24 hr tablet, 300 mg PO QAM 02/16/25 02/16/25 extended release famotidine 20 mg tablet 20 mg PO BEDTIME 02/16/25 02/16/25 metformin 500 mg tablet mg 02/16/25 02/16/25 mirtazapine 15 mg tablet 15 mg PO BEDTIME 02/16/25 02/16/25 omeprazole 20 mg capsule,delayed 20 mg PO DAILY 02/16/25 02/16/25 release tadalafil 20 mg tablet 20 mg PO DAILY 02/16/25 02/16/25 Previous Rx's ?Medication ?Instructions ?Recorded magnesium 200 mg tablet 200 mg PO DAILY #5 tabs 12/21/24 amoxicillin 875 mg-potassium 1 tab PO BID #14 tabs 06/21/25 clavulanate 125 mg tablet Allergies Allergy/AdvReac Type Severity Reaction Status Date / Time No Known Allergies Allergy Verified 06/21/25 12:30 Review of Systems Review of Systems: As per HPI Yes all other systems are reviewed and are negative Constitutional: Constitutional: Reports as per HPI [facility] Past Medical History Medical History (Updated 06/21/25 @ 15:53 by Cheri Cheney NP) Neuropathy AMANUEL (obstructive sleep apnea) Diabetes Depression HTN (hypertension) Spinal stenosis Anxiety PTSD (post-traumatic stress disorder) GERD (gastroesophageal reflux disease) Gout Hyperlipidemia Surgical History (Updated 02/16/25 @ 09:53 by Jessica Mcmanus RN) H/O colonoscopy Social History Social History (Updated 02/16/25 @ 09:53 by Jessica Mcmanus RN) Alcohol intake: current Alcohol intake frequency: 3 or more drinks per day Patient Tobacco Use Status: Never used Tobacco Smoked in Last 30 Days: Yes Use of substances other than those prescribed or required for medical reasons: Yes Substance Use Type: Crack/Cocaine Advance Directives: No Advance Directives Information Provided: Yes Physical Exam ED Vital Signs: Vital Signs - 24 hr 06/21/25 12:27 06/21/25 15:14 Temperature 97.5 F 97.6 F Pulse Rate 87 90 Respiratory Rate 16 18 Blood Pressure 155/70 H 148/76 H Pulse Oximetry 97 98 Oxygen Delivery Method Room Air Room Air BMI result Body Mass Index 30.4 Vital signs have been reviewed and appear to be correct. Blood pressure normal. Heart rate normal. Respiratory rate normal. Temperature normal. Oxygen saturation normal. Const General: cooperative and no acute distress Orientation/consciousness: oriented to person, oriented to place, oriented to time and patient oriented x3 HENMT Head: Yes normocephalic Ears: hearing grossly normal bilaterally, external ears normal, TM's normal bilaterally and EAC's normal General nose exam: Normal external nose present, Normal septum present (no hematoma) and Other nasal findings present (dried blood noted in nares, no active bleeding) Face and sinus: Yes face symmetric Mouth: oropharynx normal and moist mucous membranes Throat: Yes uvula midline Eyes Pupils: Equal, round and reactive pupils present Neck Neck: Yes normal visual inspection and Yes supple Resp Effort & Inspection: normal respiratory effort and able to speak in complete sentences Auscultation: clear to auscultation bilaterally Cardio Rate: regular rate Rhythm: regular rhythm Heart sounds: S1 normal heart sound present and S2 normal heart sound present GI Palpation (GI): Soft to palpation and nontender Auscultation: normoactive bowel sounds General: Yes no CVA tenderness Back/Spine/Pelvis Back: no CVA tenderness Skin General skin exam: elasticity normal and turgor normal Neuro General: oriented to person, oriented to place, oriented to time, patient oriented x3, moves all extremities, no focal motor deficits and CN's II-XI intact bilaterally Cranial nerves: Yes Equal, round and reactive pupils present Cognition (Neuro): normal cognition Extrem General: Yes full ROM, Yes no pedal edema and Yes no calf tenderness Psych Mental Status: mental status grossly normal Affect: normal affect Thought process: Normal thought process present Medical Decision Making Medical Decision Making [facility] Narrative: Patient is a 64-year-old male with history of alcohol use disorder presenting to the emergency department after an unwitnessed fall at home. On exam patient is awake, A+Ox3, VS WNL, afebrile, normal neurological exam without focal deficits, physical exam findings as above. Given reported symptoms and physical exam findings, initial differential includes but is not limited to ICH, skull, facial bones, cervical vertebral fracture or subluxation, drug or alcohol intoxication. Labs notable for ethanol of 257, elevated transaminases with a normal T bili, negative troponin. Patient denies any abdominal pain. CT facial bones notable for Slightly depressed left nasal bone fracture. CT head and C-spine notable for no evidence of ICH, skull or cervical vertebral fracture subluxation. My interpretation is in agreement with the radiologist's interpretation. Urine drug screen positive for cocaine. Patient requesting discharge. He is clinically sober, ethanol level is elevated. He has a sober ride home from his roommate who will remain with him for observation. I am comfortable with discharge home at this time as he has a sober adult to observe him. Discussed with patient that he should avoid blowing his nose, will discharge him on course of Augmentin. Will refer to ENT for follow-up. Return precautions discussed. Patient and roommate verbalized understanding of and agreement with plan. Differential Diagnosis Differential Diagnoses: The differential diagnosis associated with the presentation includes as per [facility] Admission/Observation Consideration of admission/observation: Escalation of care including admission/observation considered Patient would have been admitted to the hospital and transferred to appropriate facility had their clinical presentation warranted hospital admission. Lab Data [facility] Lab Attestation statement: I reviewed the patient's lab results. as per mdm 06/21/25 13:09 06/21/25 13:09 Labs: Lab Results 06/21/25 06/21/25 Range/Units 13: 13:42 WBC 5.6 (4.8-10.8) X10*3/uL RBC 4.77 (4.60-5.80) X10*6/uL Hgb 13.8 L (14.0-18.0) g/dl Hct 42.0 (42.0-52.0) % MCV 88.1 (80.0-98.0) fL MCH 28.9 (27.0-33.0) pg MCHC 32.9 (31.0-36.0) g/dl RDW 13.8 (11.0-16.0) % Plt Count 232 (160-400) X10*3/uL MPV 10.5 (9.4-12.4) fL Immature Gran % (Auto) 0.4 (0.0-0.4) % Neut % (Auto) 52.2 (45-73) % Lymph % (Auto) 34.9 (20-40) % Ransom % (Auto) 10.0 (2-11) % Eos % (Auto) 2.0 (0-4) % Baso % (Auto) 0.5 (0-2) % Lymph # (Auto) 2.0 (1.2-4.9) X10*3/uL Ransom # (Auto) 0.6 (0.1-1.2) X10*3/uL Eos # (Auto) 0.1 (0.0-0.4) X10*3/uL Baso # (Auto) 0.0 (0.0-0.2) X10*3/uL Abs Immat Gran (auto) 0.02 (0.00-0.03) X10*3/uL Absolute Neuts (auto) 2.9 (2.0-8.3) x10*3/uL Absolute Nucleated RBC 0.000 (0.0-0.012) X10*3/uL Nucleated RBC % (auto) 0.0 (0.0-0.2) /100WBC Sodium 144 (135-145) mmol/L Potassium 4.4 (3.3-5.1) mmol/L Chloride 105 (96-108) mmol/L Carbon Dioxide 25 (22-29) mmol/L Anion Gap 18 (12-20) BUN 5 L (9-16) mg/dL Creatinine 0.80 (0.5-1.4) mg/dL Estim Creat Clear Calc 113.5 Estimated GFR > 60 Random Glucose 128 H (60-115) mg/dL Calcium 11.3 H (8.4-10.2) mg/dL Magnesium 1.7 (1.6-2.6) mg/dL Total Bilirubin 0.2 (0.0-1.0) mg/dL AST 123 H (5-37) U/L ALT 66 H (0-40) U/L Alkaline Phosphatase 105 (39-117) U/L Troponin I High Sens 3.7 (<3.5-35.0) ng/L Total Protein 8.2 H (6.5-8.0) g/dL Albumin 4.9 (3.5-5.0) g/dL Urine Opiates Screen Not Detected (Not Detect) Ur Buprenorphine Scrn Not Detected (Not Detect) ng/mL Ur Oxycodone Screen Not Detected (Not Detect) ng/mL Urine Methadone Screen Not Detected (Not Detect) ng/mL Urine Fentanyl Screen Not Detected (Not Detect) Ur Barbiturates Screen Not Detected (Not Detect) Ur Phencyclidine Scrn Not Detected (Not Detect) Ur Amphetamines Screen Not Detected (Not Detect) U Benzodiazepines Scrn Not Detected (Not Detect) Urine Cocaine Screen POSITIVE H (Not Detect) U Marijuana (THC) Screen Not Detected (Not Detect) Ethyl Alcohol 257 mg/dL Independent Interpretation I performed an independent interpretation of an: EKG ( Normal sinus rhythm, rate 78 beats per minute, normal TN interval and QTC) and CT Scan Interpretation: CT head and C-spine without evidence of ICH, skull or cervical vertebral fracture or subluxation. CT facial bones notable for left nasal bone fracture. Radiology Impression Discussion of test interpretation with radiology: I have reviewed the radiologist's reading. Radiologist Impression: CT maxillofacial without contrast Comparison: None Findings: Mild deformity of the left nasal bone (19; 173 and 23; 32-36) is compatible with minimal age-indeterminate fracture. No other maxillofacial fractures. Paranasal sinuses and mastoid air cells clear. Orbits normal. Temporomandibular joints intact. Visualized intracranial contents are normal. Soft tissues unremarkable Impression: 1. Very slightly depressed age-indeterminate left nasal bone fracture. 2. No other maxillofacial fractures. CT head without contrast Comparison: None Findings: No intracranial mass, midline shift, hydrocephalus, or acute hemorrhage. No CT evidence of acute ischemia. Visualized paranasal sinuses and mastoid air cells normal. Orbits unremarkable. No skull fracture Impression: 1. No acute intracranial abnormalities. CT cervical spine without contrast Comparison: None Findings: Normal limited view of the intracranial contents. Soft tissues of the neck are normal. Lung apices are normal. Normal vertebral body alignment. No fractures or dislocations. Diffuse cervical degenerative changes are present, more significant C4-C7.. Impression: 1. No cervical vertebral fracture or traumatic malalignment. Independent Historian Clinical information obtained from an independent historian. History obtained from or confirmed by: Friend (roomate) External Record Review External record reviewed: Inpatient record, Office record and Outpatient record Prescription Management I considered prescription management with: Antibiotic Discharge Plan Discharge Clinical Impression: Fracture of nasal bone Patient Disposition: Home, Self-Care Instructions: Nasal Fracture (ED) Additional Instructions: You were evaluated in the emergency department today for injuries after a fall. The CT scan of your facial bones showed a nasal bone fracture. It is very important that you do not blow your nose. You are being treated with a course of antibiotics to prevent infection. You will need to follow up with the Ear Nose and Throat specialists. Alcohol use disorder You were seen in the Emergency Department today for treatment of alcohol use disorder.? You may have been given medications to help with your withdrawal symptoms.? Please do not drink alcohol with them. This is very dangerous and can cause respiratory depression or other adverse reactions depending on the medication. If you would like to cut down or stop your alcohol use please consider calling our outpatient Addiction Treatment office:? [facility] (M-F [id number]) [address] [facility] [address] [facility] [address] You have also been given a list of treatment providers in the area that can assist as well.? If you experience seizures, vomiting blood, black stools, falls, severe headache, chest pain, fevers, trouble breathing, hallucinations or any other concerns you need to call 911 or seek immediate care. Please stay hydrated. Prescriptions: New amoxicillin-pot clavulanate 875-125 mg tablet 1 tab PO BID Qty: 14 0RF No Action magnesium 200 mg tablet 200 mg PO DAILY Qty: 5 0RF metformin 500 mg Tablet acetaminophen 325 mg Tablet 650 mg PO Q6H PRN (Reason: Pain) famotidine 20 mg Tablet 20 mg PO BEDTIME omeprazole 20 mg Capsule,Delayed Release(Dr/Ec) 20 mg PO DAILY mirtazapine 15 mg Tablet 15 mg PO BEDTIME bupropion HCl 300 mg Tablet Extended Release 24 Hr 300 mg PO QAM tadalafil 20 mg Tablet 20 mg PO DAILY Referrals: [facility] [Provider Group, Ear, Nose, Throat] - 1 week Clinical Impression: Fracture of nasal bone Print Language: Gabonese
[2025-06-21 12:27] VITALS: BP 155/70; PULSE 87; RESP 16; TEMP 36.4; O2SAT 97; BMI 30.4
[2025-06-21 13:12] LABS: MANUAL DIFF FLAG NO
[2025-06-21 13:14] LABS: Hematocrit 42.0 % (42.0-52.0); Hemoglobin 13.8 g/dl (14.0-18.0); Imm Gran Abs Auto 0.02 X10*3/uL (0.00-0.03); Imm Gran Pct Auto 0.4 % (0.0-0.4); Lymphocytes Absolute Auto 2.0 X10*3/uL (1.2-4.9); Mean Corpuscular HGB Conc 32.9 g/dl (31.0-36.0); Mean Corpuscular Hemoglobin 28.9 pg (27.0-33.0); Mean Corpuscular Volume 88.1 fL (80.0-98.0); NRBC Abs Auto 0.000 X10*3/uL (0.0-0.012); NRBC Pct Auto 0.0 /100WBC (0.0-0.2); Platelet Count 232 X10*3/uL (160-400); Red Blood Count 4.77 X10*6/uL (4.60-5.80); White Blood Count 5.6 X10*3/uL (4.8-10.8)
[2025-06-21 13:30] LABS: Alanine Aminotransferase 66 U/L (0-40); Albumin Level 4.9 g/dL (3.5-5.0); Alkaline Phosphatase 105 U/L (39-117); Anion Gap 18 (12-20); Aspartate Amino Transferase 123 U/L (5-37); Blood Urea Nitrogen 5 mg/dL (9-16); Calcium 11.3 mg/dL (8.4-10.2); Carbon Dioxide 25 mmol/L (22-29); Chloride 105 mmol/L (96-108); Creatinine Clr Calc Pharmacy 113.5; Estimated Glomerular Filt Rate > 60; Magnesium 1.7 mg/dL (1.6-2.6); Potassium 4.4 mmol/L (3.3-5.1); Sodium 144 mmol/L (135-145); Total Protein 8.2 g/dL (6.5-8.0)
[2025-06-21 14:12] LABS: Cannabinoid Screen Urine Not Detected (Not Detect)
--- NOTE | 2025-06-21 14:18 | PC.NURSE ---
Safety search done by security. No issues.
--- OUTSIDE RECORDS SUMMARY | 2025-06-21 14:45 | XMS_ITS | Encounter Summary ---
Author Organization [facility] Address [address] [place] [address] Phone Care Team Providers Care Senior Mainframe Programmer Analyst Name Role Phone Freedom Gonzalez MD Primary Care Provider Reason for Referral * MRI/CAT Scan - Closed Specialty Diagnoses / Procedures Referred By Contac t Referred To Contact Radiology Diagnoses Spinal stenosis of cervical region Procedures MRI Cervical Spine CHG MRI, CERV SPINE CHG MRI, CERV SPINE CONTRAST CHG MRI, CERV SPINE COMBO Sam Mercado DO Phone: tel: fax: [email or web address] Referral ID Status Reason Start Date Expiration Date Visits Re quested Visits Authorized [id number] Closed 09/21/2021 03/20/2022 1 1 Encounter Details Date Type Department Care Team (Latest Contact Info) Description 09/28/2021 Transcribe Orders Virtual Department [address] [place] [address] Sam Mercado DO [address] [place] [address] [email or web address] Spinal stenosis of cervical region (Primary Dx) Social History Tobacco Use Types Packs/Day Years Used Date Smoking Tobacco: Every Day Smokeless Tobacco: Never Alcohol Use Standard Drinks/Week Comments Yes 0 (1 standard drink = 0.6 oz pur e alcohol) Sex and Gender Information Value Date Recorded Sex Assigned at Male 11/15/2018 2:23 PM EDT Legal Sex Male 6:44 PM EST Gender Identity Male 11/15/2018 2:23 PM EDT Sexual Orientation Straight 11/15/2018 2: 23 PM EDT documented as of this encounter Plan of Treatment Not on file documented as of this encounter Results * MRI CERVICAL SPINE (NEURO) FOCUS WITHOUT CONTRAST (10/12/2021 8:02 AM EST) Anatomical Region Laterality Modality C-spine Magnetic Resonan ce 10/12/2021 8:05 AM EST Impressions 10/12/2021 8:47 AM EST Advanced multilevel degenerative changes, not significantly progressed from 2020. Moderate/severe neuroforaminal stenosis on the left at C4-C5, bilaterally at C5- C6 and bilaterally at C6-C7. Moderate/severe spinal canal stenosis at C5-C6. Narrative 10/12/2021 8:47 AM EST MRI CERVICAL SPINE (NEURO) FOCUS WITHOUT CONTRAST TECHNIQUE: Multi-sequence, multi-planar MRI of the cervical spine was performed without intravenous contrast. COMPARISON: Cervical spine MRI on November 11, 2020 FINDINGS: CERVICAL SPINE: Alignment and Vertebrae: Reversal of the normal cervical lordosis, unchanged. Mild retrolisthesis of C4 on C5, C5 on C6 and C6 on C7. Mild compression fracture deformities of C4, C5 and C6 vertebral bodies. Marrow: Degenerative endplate changes at C4-C5 and C6-C7. Discs and Endplates: Desiccation of all discs. Loss of disc height at C4-C5, C5- C6 and C6-C7 levels Spinal Cord: No evidence of spinal cord compression. Two small areas of T2 hyperintensity in the brayn matter of the spinal cord at C6 level (6:80, 2:7) is more conspicuous than in 202. Soft Tissue: No prevertebral edema. Findings by level: C2-C3: No spinal or foraminal stenosis. C3-C4: No spinal or foraminal stenosis. C4-C5: Combination of disc osteophyte complex, uncovertebral degenerative changes and facet arthropathy results in mild/moderate spinal canal stenosis, and moderate/severe left and mild right neuroforaminal stenosis. C5-C6: Combination of disc osteophyte complex, uncovertebral degenerative changes and facet arthropathy results in moderate/severe bilateral neuroforaminal stenosis and moderate/severe spinal canal stenosis. C6-C7: Combination of disc height complex, uncovertebral degenerative changes and facet arthropathy results in moderate spinal canal stenosis and moderate/severe bilateral neuroforaminal stenosis. C7-T1: No spinal or foraminal stenosis. Multilevel degenerative changes are not significantly progressed from 2020. Procedure Note Fina Samuel MD - 10/12/2021 MRI CERVICAL SPINE (NEURO) FOCUS WITHOUT CONTRAST TECHNIQUE: Multi-sequence, multi-planar MRI of the cervical spine was performedwithout intravenous contrast. COMPARISON: Cervical spine MRI on November 11, 2020 FINDINGS: CERVICAL SPINE: Alignment and Vertebrae: Reversal of the normal cervical lordosis,unchanged. Mild retrolisthesis of C4 on C5, C5 on C6 and C6 on C7. Mildcompression fracture deformities of C4, C5 and C6 vertebral bodies. Marrow: Degenerative endplate changes at C4-C5 and C6-C7. Discs and Endplates: Desiccation of all discs. Loss of disc height atC4-C5, C5- C6 and C6-C7 levels Spinal Cord: No evidence of spinal cord compression. Two small areas of [id number] in the bryan matter of the spinal cord at C6 level (6:80,2:7) is more conspicuous than in 202. Soft Tissue: No prevertebral edema. Findings by level: C2-C3: No spinal or foraminal stenosis. C3-C4: No spinal or foraminal stenosis. C4-C5: Combination of disc osteophyte complex, uncovertebral degenerativechanges and facet arthropathy results in mild/moderate spinal canalstenosis, and moderate/severe left and mild right neuroforaminalstenosis. C5-C6: Combination of disc osteophyte complex, uncovertebral degenerativechanges and facet arthropathy results in moderate/severe bilateralneuroforaminal stenosis and moderate/severe spinal canal stenosis. C6-C7: Combination of disc height complex, uncovertebral degenerativechanges and facet arthropathy results in moderate spinal canal stenosisand moderate/severe bilateral neuroforaminal stenosis. C7-T1: No spinal or foraminal stenosis. Multilevel degenerative changes are not significantly progressed [id number]. IMPRESSION: Advanced multilevel degenerative changes, not significantly progressedfrom 2020. Moderate/severe neuroforaminal stenosis on the left at C4-C5,bilaterally at C5- C6 and bilaterally at C6-C7. Moderate/severe spinalcanal stenosis at C5-C6. us Sam Mercado DO IMG MR XSPECIALTY Final Resu lt documented in this encounter Visit Diagnoses Diagnosis Spinal stenosis of cervical region- Primary Spinal stenosis in cervical region Spinal stenosis of cervical region Spinal stenosis in cervical region documented in this encounter Care Teams Senior Mainframe Programmer Analyst Relationship Specialty Start Date End Date Freedom Gonzalez MD [address] [place] [id number] PCP - General Internal Medicine 11/06/18 documented as of this encounter Additional Source Comments The information contained in this document represents components of the legal health record. It is not the complete legal health record.[facility]
--- OUTSIDE RECORDS SUMMARY | 2025-06-21 14:45 | XMS_ITS | Encounter Summary ---
Author Organization [facility] Address [address] [place] [address] Phone Care Team Providers Care Spiral Tube Winder Name Role Phone Freedom Gonzalez MD Primary Care Provider Encounter Details Date Type Department Care Team (Late st Contact Info) Description 10/18/2020 Procedure Pass [facility], [address] [place] [address] Social History Tobacco Use Types Packs/Day Years [...] on file documented as of this encounter Visit Diagnoses Not on filedocumented in this encounter Care Teams Spiral Tube Winder Relationship Specialty Start Date End Date Freedom Gonzalez MD [address] [place] [address] PCP - General Internal Medicine 11/06/18 documented as of this encounter Additional Source Comments The information contained in this document represents components of the legal health record. It is not the complete legal health record.[facility]
--- OUTSIDE RECORDS SUMMARY | 2025-06-21 14:45 | XMS_ITS | Encounter Summary ---
Author Organization [facility] Address [address] [place] [address] Phone Care Team Providers Care Gas Mask Inspector Name Role Phone Freedom Gonzalez MD Primary Care Provider Encounter Details Date Type Department Care Team (Late st Contact Info) Description 09/28/2021 Procedure Pass [facility], [address] [address] Social History Tobacco Use Types Packs/Day Years [...] on filedocumented in this encounter Care Teams Gas Mask Inspector Relationship Specialty Start Date End Date Freedom Gonzalez MD [address] [place] [address] PCP - General Internal Medicine 11/06/18 documented as of this encounter Additional Source Comments The information contained in this document represents components of the legal health record. It is not the complete legal health record.[facility]
--- OUTSIDE RECORDS SUMMARY | 2025-06-21 14:45 | XMS_ITS | Clinical Summary ---
Author Organization [facility] Address [address] [facility] [place] [address] Phone Care Team Providers Care Underwriting Support Specialist Name Role Phone Jam Parrish MD Primary Care Prov ider Allergies No known active allergies Medications allopurinoL (ZYLOPRIM) 300 mg tablet Take 1 tablet (300 mg total) by mouth 1 (one) time each day. Active opfxnecc-xgz-ck rrous sulfate 4.5 mg iron tablet Take [...] Plan (09/08/2024 8:54 PM EST): Hypercholesterolemia 11/11/2013 Social History Tobacco Use Types Packs/Day Years [...] Description 07/24/2025 3:10 PM EST Office Visit [facility] [address] [place] [phone] CycPatric muñoz NP [address] [place] [address] [address] [place] [address] Health Maintenance Due Date Last Done Comments Colorectal Cancer Screening: Colonoscopy 1960 Pneumococcal Vaccine: 50+ Years (1 of 1 - PCV) 2009 Zoster Vaccines (1 of 2) 2009 Hepatitis A Vaccines (2 of 2 - Risk 2-dose series) 02/05/2013 08/08/2012 Abdominal Aortic Aneurysm (AAA) Screen 02/26/2024 Hepatitis C Screening 02/26/2024 Social Influencers of Health Screening 02/26/2024 Cholesterol Screening (Lipid Panel) 05/03/2024 05/03/2019, 03/15/2018, 03/15/2018, Additional history exists Depression Screening 08/06/2024 Falls Risk Assessment 2024 Hypertension/CHF/CAD Annual BMP Blood Test 09/07/2024 08/29/2018 COVID-19 Vaccine ( season) 2025 Influenza Vaccine (#1) 2025 DTaP,Tdap,and Td Vaccines (2 - Td [...] patient's age to complete this topic Insurance [facility] [place] - [place] Care Teams Underwriting Support Specialist Relationship Specialty Start Date End Date Jam Parrish MD [address] [place] [address] PCP - General 08/27/23
--- OUTSIDE RECORDS SUMMARY | 2025-06-21 14:45 | XMS_ITS | Patient Health Record ---
Author Organization [facility] Address [address] [place] [address] Care Team Providers Care Java Manager Name Role Phone Jam Parrish M.D Primary Care Pro vider Unavailable Rony Vera Jr Unavailable [phone] Allergies No Known Allergies Results Component Value Reference Range Flag Notes Basic Metabolic Panel Fastin g Reviewed date:04/03/2025 03:13:10 PM Interpretation: Performing Lab:[facility], [address] [place] [phone] Notes/Report: Sodium 140 135-145 mmol/L N Potassium 5.1 3.3-5.1 mmol/L N Slight Hem olysis.Interpret result with caution. Chloride 103 96-108 mmol/L N Carbon Dioxide 26 22-29 mmol/L N Anion Gap 16 12-20 N Blood Urea Nitrogen 13 9-16 mg/dL N Creatinine 1.79 0.5-1.4 mg/dL H Creatinine Clr Calc Pharmacy 50.3 eGFR (calculated from the MDRD study equation) and eCrCl (calculated from the Cockcroft-Gault equation) are based on different parameters and may not yield comparable results. If eCrCl result is absurd, please check patient's height/weight. Estimated Glomerular Filt Rate 38 Chronic Kidney Disease: Estimated GFR < 60 mL/min/1.73m2 Severe Kidney Disease: Estimated GFR < 15 mL/min/1.73m2 Glucose Fasting 187 60-99 mg/dL H A fasting glucose of 126 mg/dl or greater on more than one occasion is considered diagnostic of diabetes. Calcium 12.0 8.4-10.2 mg/dL H Magnesium Reviewed date:04/03/2025 03:12:45 PM Interpretation: Performing Lab:[facility], [address] [place] [phone] Notes/Report: Magnesium 2.1 1.6-2.6 mg/dL N Pathology Reviewed date:04/09/2025 07:46:43 AM Interpretation: Performing Lab:[facility], [address] [place] [phone] Notes/Report: Reason For Referral Referring Provider First Name Jam Referring Provider Last Name Wilberto odell Referred Organization [facility] Referred Provider Rony Vera Jr Referred Address [address],[place] [address],[place], [place],[address], Referred Provider Specialty Gastroentero logy Referral Priority Routine Medications Medication SIG (Take, Route, Frequency, Duration) Notes Start Date End Date Status Tadalafil 20 MG Tablet 1 tablet as neede d Orally Once a day; Duration: 30 day(s) Active Omeprazole 40 MG Capsule Delayed Release 1 capsule 1/2 to 1 hour before morning meal Orally Once a day; Duration: 30 days 04/03/2025 Active buPROPion HCl ER (XL) 300 MG Tablet Extended Release 24 Hour 1 tablet in the morning Orally Once a day; Duration: 30 day(s) Active Famotidine 20 MG Tablet 1 tablet at bedt rashid as needed Orally Once a day; Duration: 30 day(s) Active Acetaminophen 325 MG Tablet 1 tablet as needed Orally every 4 hrs Active Dulcolax 5 MG Tablet Delayed Release 4 tablets for bowel prep Orally Once a day; Duration: 1 days 02/25/2025 Active Mirtazapine 15 MG Tablet 1 tablet at bed time Orally Once a day; Duration: 30 day(s) Active MiraLax 17 GM/SCOOP Powder take for raul l prep Orally Once a day; Duration: 1 days 02/25/2025 Active Omeprazole 20 MG Capsule Delayed Release 1 capsule 30 minutes before morning meal Orally Once a day; Duration: 30 day(s) Active Lidocaine & Menthol 5 & 10 % Kit as directed Externally Activ e Immunizations Vaccine Route Administration Date Status Comme nts Influenza Unknown 09/27/2023 Refused Social History Tobacco Use: Social History Observation Description Date Details (start date - stop date) Never Smoker NA - NA Social History Drugs/Alcohol: Social Info Question Answer Notes Alcohol Screen Did you have a drink containing alcohol in the past year? Yes How often did you have a drink containing alcohol in the past year? 4 or more times a week (4 points) How many drinks did you have on a typical day when you were drinking in the past year? 3 or 4 drinks (1 point) How often did you have 6 or more drinks on one occasion in the past year? Never (0 point) Points 5 Interpretation Positive Tobacco Use: Social Info Question Answer Notes Tobacco Use/Smoking Patient is a nonsmoker Additional Details Category Social Info Options Details Miscellaneous: Marital status: single Occupation: retired Problems Problem Type SNOMED Code ICD Code Onset Dates Problem Status W/U Status Risk Notes Problem Colon cancer screening (709385611) Colon cancer screening (Z12.11) Active confirmed Problem Gastroesophageal reflux disease (315730834) Gastroesophageal reflux disease, unspecified whether esophagitis present (K21.9) Active confirmed Vital Signs Blood pressure diastolic 77 mm Hg 02/05/2025 Height 72 in 02/05/2025 Blood pressure systolic 111 mm Hg 02/05/2025 Weight 223 lbs 02/05/2025 BMI 30.24 kg/m2 02/05/2025 Encounters Encounter Location Date Provider Diagnosis [facility] [place] [address] [place] [id number] 04/03/2025 Rony Vera Jr [facility] [address] [place] [phone] 02/05/2025 Rony Vera Jr Gastroesophageal reflux disease, unspecified whether esophagitis present K21.9 and Colon cancer screening Z12.11 [facility] [address] [place] [phone] 02/05/2025 Rony Vera Jr [facility] [address] [place] [phone] 02/17/2025 Rony Vera Jr [facility] [address] [place] [phone] 02/20/2025 Rony Vera Jr [facility] [address] [place] [phone] 04/03/2025 Rony Vera Jr [facility] [address] [place] [address] 04/09/2025 Rony Vera Jr Assessments Encounter Date Diagnosis (ICD Code) Assessment Notes Treatment Notes Treatment Clinical Notes Section Notes 02/05/2025 Colon cancer screening (ICD-10 - Z12.11) We discussed gastroesophageal reflux disease today. We discussed the importance of staying on his present medication which he will continue. We discussed diet, lifestyle modifications, and weight management regarding the treatment of reflux. He is due for colorectal cancer screening as well as endoscopy and these will be arranged. He understands risks and benefits of the procedures today. He is advised to stop aspirin 1 week before the procedure and metformin the day before the procedure 02/05/2025 Gastroesophageal reflux disease, unspecified whether esophagitis present (ICD-10 - K21.9) We discussed gastroesophageal reflux disease today. We discussed the importance of staying on his present medication which he will continue. We discussed diet, lifestyle modifications, and weight management regarding the treatment of reflux. He is due for colorectal cancer screening as well as endoscopy and these will be arranged. He understands risks and benefits of the procedures today. He is advised to stop aspirin 1 week before the procedure and metformin the day before the procedure Plan Of Treatment Future Test Test Name Order Date UPPER GI ENDOSCOPY 09/27/2023 COLONOSCOPY 09/27/2023 UPPER GI ENDOSCOPY 02/05/2025 COLONOSCOPY 02/05/2025 Next Appt Details Provider Name:Rony whelan Jr, 07/20/2025 01:55:00 PM, [address], [address], [place], [address], Insurance Providers Payer Name Payer Address Payer Phone Subscriber Number Group Number Insured Name Patient Relationship to Insured Coverage Start Date Coverage End Date [facility] [employer] [address] [place] [id number] [phone] [id number] SALINA WAHL Self - patient is the insured Medical (General) History Medical History History ICD Code Hyperlipidemia Elevated blood sugar Gout Gastroesophageal reflux disease Anxiety/depression/PTSD Spinal stenosis type II diabetes neuropathy AMANUEL, not on CPAP Substance abuse, denies drug use recently as of 02/05, admits to too much alcohol use Surgical History Surgery Date(Month/Year) Hospitalization History Reason Date(Month/Year) [facility], difficulty with urinaalainao n, records requested 08/29
--- OUTSIDE RECORDS SUMMARY | 2025-06-21 14:45 | XMS_ITS | Clinical Summary ---
Author Organization [facility] Address [address] [place] [address] Phone Care Team Providers Care Mattress And Foundation Sewer Name Role Phone Freedom Gonzalez MD Primary Care Provider Allergies No known active allergies Medications atorvastatin calcium (ATORVASTATIN ORAL) Take by mouth. Active OMEPRAZOLE ORAL Take by mouth. Active aspirin 81 MG EC tablet Take 81 mg by mouth daily. Active multivitamins capsule Take 1 capsule by mouth daily. Active acetaminophen-codei ne (TYLENOL #3) 300-30 mg per tablet Take 1 tablet by mouth every 6 (six) hours as needed for pain (specific location in comments). 10 tablet 9 Active ondansetron (ZOFRAN-ODT) 4 MG disintegrating tablet Take 1 tablet (4 mg total) by mouth every 12 (twelve) hours as needed for nausea. 20 tablet 0 Active Social History Tobacco Use Types Packs/Day Years Used Date Smoking Tobacco: Every Day Smokeless Tobacco: Never Alcohol Use Standard Drinks/Week Comments Yes 0 (1 standard drink = 0.6 oz pur e alcohol) Education Answer Date Recorded Are you interested in more education? Not on greer e 12/18/2022 Are you concerned about learning? Not on file 12/18/2022 No 12/18/2022 No 12/18/2022 Digital Access Answer Date Recorded No 12/31/2022 No 12/31/2022 No 12/31/2022 Reliable internet access at home? Not on file 12/31/2022 Device with a working camera? Not on file Sex and Gender Information Value Date Recorded Sex Assigned at Male 11/15/2018 2:23 PM EDT Legal Sex Male 6:44 PM EST Gender Identity Male 11/15/2018 2:23 PM EDT Sexual Orientation Straight 11/15/2018 2: 23 PM EDT Last Filed Vital Signs Vital Sign Reading Time Taken Comments Blood Pressure 130/60 09/15/2019 2:11 PM EST Pulse 98 09/15/2019 2:11 PM EST Temperature 36.8 C (98.2 F) 09/15/2019 1:21 PM EST Respiratory Rate 20 09/15/2019 2:11 PM EST Oxygen Saturation 98% 09/15/2019 2:11 PM EST Inhaled Oxygen Concentration - - Weight 99.8 kg (220 lb) 10/09/2021 12:00 PM EST Height 182.9 cm (6') 10/09/2021 12:00 PM EST Body Mass Index 29.84 10/09/2021 12:00 PM EST Plan of Treatment Health Maintenance Due Date Last Done Comments Adult Td,Tdap Booster 1959 DEPRESSION SCREENING 1971 SMOKING Hx and SMOKELESS TOB ACCO SCREENING 1972 HEPATITIS C SCREENING 1977 HIV ONE-TIME SCREENING (18-6 5 YEARS) 1977 PNEUMOCOCCAL VACCINES (50+ y ears) (1 of 2 - PCV) 1978 COLOGUARD 2004 COLONOSCOPY 2004 COLORECTAL CANCER SCREENING 2004 FIT TEST 2004 FOBT 2004 SIGMOIDOSCOPY 2004 VIRTUAL COLONOSCOPY 2004 ZOSTER VACCINES (1 of 2) 2009 LIPID PANEL 05/03/2024 05/03/2019 ABDOMINAL AORTIC ANEURYSM (A AA) SCREENING 2024 INFLUENZA VACCINE (#1) 2025 COVID-19 VACCINE ( - 2024-2 6 season) 2025 RSV VACCINE (1 - 1-dose 75+ series) 2034 HEPATITIS A VACCINES Aged Out 08/08/2012 No long er eligible based on patient's age to complete this topic HIB VACCINES Aged Out No longer eligi ble based on patient's age to complete this topic IPV VACCINES Aged Out No longer eligi ble based on patient's age to complete this topic MENINGOCOCCAL VACCINES (ACWY) Aged Out No longer eligible based on patient's age to complete this topic MENINGOCOCCAL VACCINES (B) Aged Out N o longer eligible based on patient's age to complete this topic Medical Devices Not on file Procedures Procedure Name Priority Date/Time Associated Diagnosis Comments LIPID PANEL Routine 05/03/2019 8:22 AM EDT from Last 3 Months or Most Recently Relevant to Health Maintenance Results * (ABNORMAL) Lipid panel (05/03/2019 8:22 AM EDT) HDL 74 mg/dL [facility] Comment: Interpretation <40 mg/dL: Low HDL cholesterol (major risk factor for CHD) Greater than or equal to 60 mg/dL: High HDL cholesterol ( negative risk factor for CHD) HDL - cholesterol is affected by a number of factors, e.g. smoking, excerise, hormones, sex and age. CHOLESTEROL 289(H) 0 - 240 mg/dL [facility] TRIGLYCERIDES 240(H) 30 - 160 mg/dL [facility] LDL 167(H) 50 - 129 mg/dL [facility] Comment: LDL levels in terms of risk for coronary heart disease: <100 mg/dL: Optimal 100-129 mg/dL: Near or above optimal 130-159 mg/dL: Borderline high 160-189 mg/dL: High >190 mg/dL: Very High CARDIAC RISK RATIO 3.9 3.4 - 5.0 [facility] 05/03/2019 8:22 AM EDT 05/03/2019 8:57 AM EDT us Ciera ZUNIGA LAB BLOOD BKR ORDERABLES Final Result [facility] [address] [place] [address] from Last 3 Months or Most Recently Relevant to Health Maintenance Insurance [facility] [employer] [facility] [employer] Member Subscriber Plan / Payer ( fective 2018-Present) Name:Dariel Taylor Relation to Subscriber:Self Name:Dariel Taylor Payer ID:Not on file Type:Medicaid Address: [place] [id number] [facility] Member Subscriber Plan / Payer (Ef fective 2019-Present) Name:Dariel Taylor Relation to Subscriber:Self Name:Dariel Taylor Payer ID:[id number] (NAIC) Group ID:Not on file Type:Indemnity Address: [facility] [employer] [id number] ACO [facility] [place] [address] [facility] [employer] [id number] [address] [facility] [employer] Care Teams Mattress And Foundation Sewer Relationship Specialty Start Date End Date Freedom Gonzalez MD [address] [place] [id number] PCP - General Internal Medicine 11/06/18 Additional Source Comments The information contained in this document represents components of the legal health record. It is not the complete legal health record.[facility]
[2025-06-21 15:14] VITALS: BP 148/76; PULSE 90; RESP 18; TEMP 36.4; O2SAT 98
[2025-06-21 15:38] LABS: Troponin-I High Sensitivity 3.7 ng/L (<3.5-35.0)
[2025-06-21 16:00] VITALS: BP 148/76; PULSE 90; RESP 18; TEMP 36.4; O2SAT 98
== END 2025-06-21 16:01 | disposition home or self-care (01) ==
PROVIDERS: Registered Nurse Emergency; Emergency Provider Emergency Medicine
DX: S02.2XXA Fracture of nasal bones, initial encounter for closed fracture (principal); I10 Essential (primary) hypertension; E11.9 Type 2 diabetes mellitus without complications; F10.90 Alcohol use, unspecified, uncomplicated; Y90.8 Blood alcohol level of 240 mg/100 ml or more; W18.30XA Fall on same level, unspecified, initial encounter; Y93.9 Activity, unspecified; Y92.000 Kitchen of unspecified non-institutional (private) residence as the place of occurrence of the external cause; Y99.9 Unspecified external cause status
CPT/HCPCS: 36415; 70450; 70486; 72125; 80053; 80307; 83735; 84484; 85025; 93005; 99284; 99285

== ENCOUNTER → 2025-06-21 12:20 | Outpatient (BNV) | payer OTHER, SELFPAY | PROVIDERS: Emergency Provider Emergency Medicine; Visit Provider Internal Medicine | DX: Z04.3 Encounter for examination and observation following other accident (principal) | CPT/HCPCS: 93010 ==

== ENCOUNTER → 2025-06-21 12:20 | Outpatient (BNV) | payer OTHER, SELFPAY | PROVIDERS: Emergency Provider Emergency Medicine; Visit Provider Radiology Diagnostic Radiology | DX: F10.929 Alcohol use, unspecified with intoxication, unspecified (principal); R04.0 Epistaxis; Z04.3 Encounter for examination and observation following other accident | CPT/HCPCS: 70450; 70486; 72125 ==